=== PATIENT | male | born 1945 | race Caucasian/White ===

== ENCOUNTER 2024-03-24 11:33 | Inpatient (IN) | payer OTHER, MEDICARE ==
--- NOTE | 2024-03-24 12:00 | ED ---
Fall HPI - General Chief Complaint: Fall Stated Complaint: fall,head injury Time Seen by Provider: 03/24/24 11:44 Source: patient, EMS, RN notes reviewed Mode of arrival: EMS Limitations: no limitations - History of Present Illness Initial Comments: This is a 78-year-old male who presents to the emergency department for a fall. States that 2 to 3 days ago his left knee gave out on him and he fell, hitting the back of his head. There was no loss of consciousness and he is not on any blood thinners. He has since started to have headaches, blurry vision, nausea, and vomiting. He was not evaluated immediately after he fell. Additionally, he is also now complaining of pain in the left lower quadrant and left mid to lower back. This started after the fall and does not feel like an injury, but something else. Patient noted to be febrile here, states that he has not measured any fevers at home. He does report shortness of breath, but states th at he is always short of breath. Denies any chest pain. Also states that he feels very fatigued and is having difficulty staying awake. MD Complaint: fall - Related Data Home Medications Medication Instructions Recorded Confirmed Atorvastatin [Lipitor] 40 mg PO HS 03/24/24 03/24/24 Dulaglutide [Trulicity] 3 mg SQ TU 03/24/24 03/24/24 Ferrous Sulfate [Feosol] 325 mg PO DAILY 03/24/24 03/24/24 Fluticasone Nasal [place] [Flonase 1 spray EA NOSTRIL BID PRN 03/24/24 03/24/24 Nasal [place]] Insulin Glargine,Hum.rec.anlog 60 units SQ DAILY 03/24/24 03/24/24 [Lantus Solostar Pen] Loratadine [Claritin] 10 mg PO DAILY 03/24/24 03/24/24 Losartan Potassium [Cozaar] 100 mg PO DAILY 03/24/24 03/24/24 Mirabegron [Myrbetriq] 50 mg PO DAILY 03/24/24 03/24/24 Tamsulosin [Flomax] 0.4 mg PO DAILY 03/24/24 03/24/24 amLODIPine [Norvasc] 10 mg PO DAILY 03/24/24 03/24/24 hydrALAZINE HCL [Apresoline] 50 mg PO BID 03/24/24 03/24/24 metFORMIN HCL [Glucophage] 750 mg PO DAILY 03/24/24 03/24/24 Allergies Allergy/AdvReac Type Severity Reaction Status Date / Time Penicillins Allergy Rash/Hives Verified 03/24/24 14:52 lisinopril AdvReac Cough Verified 03/24/24 14:52 oxybutynin AdvReac Dizziness Verified 03/24/24 14:52 semaglutide [From Ozempic] AdvReac Nausea & Verified 03/24/24 14:52 Vomiting trospium AdvReac Dizziness Verified 03/24/24 14:52 Review of Systems ROS Statement: Those systems with pertinent positive or pertinent negative responses have been documented in the HPI. ROS Other: All systems not noted in ROS Statement are negative. Past Medical History Past Medical History: Diabetes Mellitus, Hypertension Smoking Status: Former smoker Past Alcohol Use History: None Reported Past Drug Use History: None Reported - Past Family History Mother History Unknown: Yes General Exam Limitations: no limitations General appearance: alert, in no apparent distress Head exam: Present: atraumatic, normocephalic, normal inspection Eye exam: Present: normal appearance, PERRL, EOMI. Absent: scleral icterus, c onjunctival injection, periorbital swelling Respiratory exam: Present: decreased breath sounds, prolonged expiratory Cardiovascular Exam: Present: normal rhythm, tachycardia GI/Abdominal exam: Present: soft, tenderness (LLQ), normal bowel sounds. Absent: distended Back exam: Present: other (Tenderness to palpation of the left mid to lower back) Neurological exam: Present: alert, oriented X3, CN II-XII intact Psychiatric exam: Present: normal affect, normal mood Skin exam: Present: warm, dry, intact Course Vital Signs 03/24/24 03/24/24 03/24/24 11:38 13:54 14:45 Temperature 102.7 F H 100 F H Pulse Rate 142 H 113 H 112 H Respiratory 26 H 24 20 Rate Blood Pressure 136/69 147/81 183/98 O2 Sat by Pulse 94 L 95 95 Oximetry Procedures - Sepsis Sepsis Focused Exam #1 Time Sepsis Criteria Met: 13:54 Additional Sepsis Comments: Patient's BMI>30, fluids will be given based on IBW of: [73kg] Patient will instead receive: [2500 mL] Medical Decision Making - Medical Decision Making This is a 78 year old male who presents to the emergency department for a head injury and fevers. Was pt. sent in by a medical professional or institution? @ -No Did you speak to anyone other than the patient for history? @ -No Did you review nursing and triage notes? @ -Yes, and I agree, it is accurate with regards to the patient's symptoms. Were old charts reviewed? @ -No Differential Diagnosis? @ -Differential Diagnosis Head Injury: Contusion, hematoma, intracranial hemorrhage, skull fracture, whiplash, concussion, this is not meant to be an all-inclusive list. EKG interpreted by me (3pts min.)? @ -EKG interpreted by me demonstrating the following: Sinus tachycardia. Ventricular rate 132 bpm, DE interval 132 ms, QRS duration 101 ms, QTc 381 ms. X-rays interpreted by me (1pt min.)? @ -Chest x-ray obtained, my interpretation identifies no localized consolidations or infiltrates. CT interpreted by me (1pt min.)? @ -Computed tomography scan of the brain and c-spine obtained. My interpretation identifies no evidence of an acute intracranial hemorrhage, skull fracture, or cervical spine fracture. CT scan of the abdomen and pelvis obtained. My interpretation identifies a left ureteral calculus. U/S interpreted by me (1pt. min.)? @ -Not obtained What testing was considered but not performed? (CT, X-rays, U/S, labs)? Why? @ -None What meds were considered but not given? Why? @ -None Did you discuss the management of the patient with other professionals? @ -Yes, Dr. Maurer, urology, who advised that the patient will need to go to the OR for a stent and advised keeping him n.p.o. Dr. Carmichael accepts the patient for admission to medicine. Did you reconcile home meds? @ -Yes Was smoking cessation discussed for >3mins.? @ -No Was critical care preformed (if so, how long)? @ -No Were there social determinants of health that impacted care today? How? (Homelessness, low income, unemployed, alcoholism, drug addiction, transportation, low edu. Level, literacy, decrease access to med. care, custodial, rehab)? @ -No Was there de-escalation of care discussed even if they declined? (Discuss DNR or withdrawal of care, Hospice)? @ -No What co-morbidities impacted this encounter? (DM, HTN, Smoking, COPD, CAD, Cancer, CVA, Hep., AIDS, mental health diagnosis, sleep apnea, morbid obesity)? @ -DM, HTN Was patient admitted / discharged? @ -Admitted. Patient was febrile on arrival with a temperature of 102.7 F. Lab work demonstrates mild hypomagnesemia with a magnesium of 1.4 and an elev ated lactic acid of 3.1. 800 mg of magnesium oxide administered. COVID, influenza, and RSV testing negative. CT scan of the brain and C-spine obtained revealing no acute process. Given his pain in the back and abdomen, we obtained a CT scan of the abdomen and pelvis which revealed a 2 mm calculus in the left mid ureter with mild left hydronephrosis. No spinal fractures were identified. Patient denies any history of kidney stones. Patient's urinalysis returned after the CT scan. Naqvi catheter was placed by nursing staff. Urinalysis consistent with infection based on many bacteria and elevated WBCs. A large amount of blood is noted as well. Patient met sepsis criteria at 1354 when his urinalysis returned confirming the source of infection. He met the SIRS criteria of the fever and tachycardia. Patient's BMI is >30, and fluids will be given based on an IBW of 73kg. He instead received 2500 mL of normal saline. Maintenance fluids initiated as well. Urine was sent for culture and blood cultures obtained as well. He was then given 2 g of ceftriaxone. Case discussed with Dr. Maurer, urology, who advised that the patient likely has a septic stone and will need to go to the OR for a stent. Patient was kept n.p.o. and admitted to medicine for further management with urology as consult. Case discussed with ED attending Dr. Liao. Of note -when reviewing documentation the following day, it appears that his weight was listed differently than when he was in the emergency department. His actual weight is 131.5 kg with a BMI of approximately 41.5. The weight of 75.5 kg is incorrect. Undiagnosed new problem with uncertain prognosis? @ -None Drug Therapy requiring intensive monitoring for toxicity (Heparin, Nitro, Insulin, Cardizem)? @ -None Were any procedures done? @ -None Diagnosis/symptom? @ -Left ureteral calculus, UTI, sepsis Acute, or Chronic, or Acute on Chronic? @ -Acute Uncomplicated (without systemic symptoms) or Complicated (systemic symptoms)? @ -Complicated Side effects of treatment? @ -None Exacerbation, Progression, or Severe Exacerbation] @ -Not applicable Poses a threat to life or bodily function? @ -Yes, can lead to septic shock and - Lab Data Result diagrams: 03/25/24 04:59 03/25/24 04:59 Lab Results 03/24/24 03/24/24 03/24/24 Range/Units 12:06 12:06 12:06 WBC 5.2 (3.8-10.6) k/uL RBC 3.83 L (4.30-5.90) m/uL Hgb 11.2 L (13.0-17.5) gm/dL Hct 33.5 L (39.0-53.0) % MCV 87.7 (80.0-100.0) fL MCH 29.4 (25.0-35.0) pg MCHC 33.5 (31.0-37.0) g/dL RDW 15.1 (11.5-15.5) % Plt Count 116 L (150-450) k/uL MPV 7.5 Neutrophils % 96 % Lymphocytes % 2 % Monocytes % 1 % Eosinophils % 1 % Basophils % 0 % Neutrophils # 5.0 (1.3-7.7) k/uL Lymphocytes # 0.1 L (1.0-4.8) k/uL Monocytes # 0.1 (0-1.0) k/uL Eosinophils # 0.0 (0-0.7) k/uL Basophils # 0.0 (0-0.2) k/uL PT 11.9 (10.0-12.5) sec INR 1.1 (<1.2) APTT 21.0 L (22.0-30.0) sec Sodium 139 (137-145) mmol/L Potassium 4.0 (3.5-5.1) mmol/L Chloride 107 (98-107) mmol/L Carbon Dioxide 16 L (22-30) mmol/L Anion Gap 16 mmol/L BUN 19 (9-20) mg/dL Creatinine 1.69 H (0.66-1.25) mg/dL Est GFR (CKD-EPI)AfAm 44 (>60 ml/min/1.73 sqM) Est GFR (CKD-EPI)NonAf 38 (>60 ml/min/1.73 sqM) Glucose 140 H (74-99) mg/dL Lactic Ac Sepsis Rflx Plasma Lactic Acid [place] (0.7-2.0) mmol/L Calcium 10.0 (8.4-10.2) mg/dL Magnesium 1.4 L (1.6-2.3) mg/dL Total Bilirubin 1.6 H (0.2-1.3) mg/dL AST 25 (17-59) U/L ALT 18 (4-49) U/L Alkaline Phosphatase 138 H (38-126) U/L NT-Pro-B Natriuret Pep 241 pg/mL Total Protein 6.8 (6.3-8.2) g/dL Albumin 4.3 (3.5-5.0) g/dL Lipase 136 (23-300) U/L Urine Color Urine Appearance (Clear) Urine pH (5.0-8.0) Ur Specific [place] (1.001-1.035) Urine Protein (Negative) Urine Glucose (UA) (Negative) Urine Ketones (Negative) Urine Blood (Negative) Urine Nitrite (Negative) Urine Bilirubin (Negative) Urine Urobilinogen (<2.0) mg/dL Ur Leukocyte Esterase (Negative) Urine RBC (0-5) /hpf Urine WBC (0-5) /hpf Ur Squamous Epith Cells (0-4) /hpf Urine Bacteria (None) /hpf Urine Mucus (None) /hpf Acetone, Qual Negative (Negative) Influenza Type A (PCR) (Not Detectd) Influenza Type B (PCR) (Not Detectd) RSV (PCR) (Not Detectd) SARS-CoV-2 (PCR) (Not Detectd) 03/24/24 03/24/24 03/24/24 Range/Units 12:06 12:06 12:40 WBC (3.8-10.6) k/uL RBC (4.30-5.90) m/uL Hgb (13.0-17.5) gm/dL Hct (39.0-53.0) % MCV (80.0-100.0) fL MCH (25.0-35.0) pg MCHC (31.0-37.0) g/dL RDW (11.5-15.5) % Plt Count (150-450) k/uL MPV Neutrophils % % Lymphocytes % % Monocytes % % Eosinophils % % Basophils % % Neutrophils # (1.3-7.7) k/uL Lymphocytes # (1.0-4.8) k/uL Monocytes # (0-1.0) k/uL Eosinophils # (0-0.7) k/uL Basophils # (0-0.2) k/uL PT (10.0-12.5) sec INR (<1.2) APTT (22.0-30.0) sec Sodium (137-145) mmol/L Potassium (3.5-5.1) mmol/L Chloride (98-107) mmol/L Carbon Dioxide (22-30) mmol/L Anion Gap mmol/L BUN (9-20) mg/dL Creatinine (0.66-1.25) mg/dL Est GFR (CKD-EPI)AfAm (>60 ml/min/1.73 sqM) Est GFR (CKD-EPI)NonAf (>60 ml/min/1.73 sqM) Glucose (74-99) mg/dL Lactic Ac Sepsis Rflx Y Plasma Lactic Acid Forrest 3.1 H* (0.7-2.0) mmol/L Calcium (8.4-10.2) mg/dL Magnesium (1.6-2.3) mg/dL Total Bilirubin (0.2-1.3) mg/dL AST (17-59) U/L ALT (4-49) U/L Alkaline Phosphatase (38-126) U/L NT-Pro-B Natriuret Pep pg/mL Total Protein (6.3-8.2) g/dL Albumin (3.5-5.0) g/dL Lipase (23-300) U/L Urine Color Urine Appearance (Clear) Urine pH (5.0-8.0) Ur Specific [place] (1.001-1.035) Urine Protein (Negative) Urine Glucose (UA) (Negative) Urine Ketones (Negative) Urine Blood (Negative) Urine Nitrite (Negative) Urine Bilirubin (Negative) Urine Urobilinogen (<2.0) mg/dL Ur Leukocyte Esterase (Negative) Urine RBC (0-5) /hpf Urine WBC (0-5) /hpf Ur Squamous Epith Cells (0-4) /hpf Urine Bacteria (None) /hpf Urine Mucus (None) /hpf Acetone, Qual (Negative) Influenza Type A (PCR) Not Detected (Not Detectd) Influenza Type B (PCR) Not Detected (Not Detectd) RSV (PCR) Not Detected (Not Detectd) SARS-CoV-2 (PCR) Not Detected (Not Detectd) 03/24/24 03/24/24 Range/Units 13:54 14:59 WBC (3.8-10.6) k/uL RBC (4.30-5.90) m/uL Hgb (13.0-17.5) gm/dL Hct (39.0-53.0) % MCV (80.0-100.0) fL MCH (25.0-35.0) pg MCHC (31.0-37.0) g/dL RDW (11.5-15.5) % Plt Count (150-450) k/uL MPV Neutrophils % % Lymphocytes % % Monocytes % % Eosinophils % % Basophils % % Neutrophils # (1.3-7.7) k/uL Lymphocytes # (1.0-4.8) k/uL Monocytes # (0-1.0) k/uL Eosinophils # (0-0.7) k/uL Basophils # (0-0.2) k/uL PT (10.0-12.5) sec INR (<1.2) APTT (22.0-30.0) sec Sodium (137-145) mmol/L Potassium (3.5-5.1) mmol/L Chloride (98-107) mmol/L Carbon Dioxide (22-30) mmol/L Anion Gap mmol/L BUN (9-20) mg/dL Creatinine (0.66-1.25) mg/dL Est GFR (CKD-EPI)AfAm (>60 ml/min/1.73 sqM) Est GFR (CKD-EPI)NonAf (>60 ml/min/1.73 sqM) Glucose (74-99) mg/dL Lactic Ac Sepsis Rflx Plasma Lactic Acid [place] 1.9 (0.7-2.0) mmol/L Calcium (8.4-10.2) mg/dL Magnesium (1.6-2.3) mg/dL Total Bilirubin (0.2-1.3) mg/dL AST (17-59) U/L ALT (4-49) U/L Alkaline Phosphatase (38-126) U/L NT-Pro-B Natriuret Pep pg/mL Total Protein (6.3-8.2) g/dL Albumin (3.5-5.0) g/dL Lipase (23-300) U/L Urine Color Colorless Urine Appearance Clear (Clear) Urine pH 5.0 (5.0-8.0) Ur Specific [place] 1.010 (1.001-1.035) Urine Protein Trace H (Negative) Urine Glucose (UA) Negative (Negative) Urine Ketones Negative (Negative) Urine Blood Large H (Negative) Urine Nitrite Negative (Negative) Urine Bilirubin Negative (Negative) Urine Urobilinogen <2.0 (<2.0) mg/dL Ur Leukocyte Esterase Moderate H (Negative) Urine RBC 8 H (0-5) /hpf Urine WBC 10 H (0-5) /hpf Ur Squamous Epith Cells <1 (0-4) /hpf Urine Bacteria Many H (None) /hpf Urine Mucus Rare H (None) /hpf Acetone, Qual (Negative) Influenza Type A (PCR) (Not Detectd) Influenza Type B (PCR) (Not Detectd) RSV (PCR) (Not Detectd) SARS-CoV-2 (PCR) (Not Detectd) - Radiology Data Radiology results: report reviewed, image reviewed Disposition Clinical Impression: UTI (urinary tract infection), Ureteral calculus, left, Sepsis Disposition: ADMITTED IP TO THIS HOSP
[2024-03-24] MEDS: SODIUM CHLORIDE 0.9% 500 ML 500 ML IV STA (12:10)
[2024-03-24] MEDS: ACETAMINOPHEN TAB 500 MG TAB PO STA (12:10)
[2024-03-24] MEDS: SODIUM CHLORIDE 0.9% 2,000 ML IV STA (12:10)
[2024-03-24 12:20] LABS: Basophils % (A) 0 %; Eosinophils % (A) 1 %; HCT 33.5 % (39.0-53.0); HGB 11.2 gm/dL (13.0-17.5); Lymphocytes # (A) 0.1 k/uL (1.0-4.8); Lymphocytes % (A) 2 %; MCH 29.4 pg (25.0-35.0); MCHC 33.5 g/dL (31.0-37.0); MCV 87.7 fL (80.0-100.0); Mean Platelet Volume 7.5; Monocytes # (A) 0.1 k/uL (0-1.0); Monocytes % (A) 1 %; Neutrophils % (A) 96 %; Platelet Count 116 k/uL (150-450); RBC 3.83 m/uL (4.30-5.90); RDW 15.1 % (11.5-15.5); WBC 5.2 k/uL (3.8-10.6)
[2024-03-24 12:33] LABS: ALT 18 U/L (4-49); AST 25 U/L (17-59); African American GFR (CKD) 44 (>60 ml/min/1.73 sqM); Albumin 4.3 g/dL (3.5-5.0); Alkaline Phosphatase 138 U/L (38-126); Anion Gap 16 mmol/L; Blood Urea Nitrogen 19 mg/dL (9-20); Carbon Dioxide 16 mmol/L (22-30); Chloride 107 mmol/L (98-107); Glucose 140 mg/dL (74-99); Lipase 136 U/L (23-300); Magnesium 1.4 mg/dL (1.6-2.3); Non-African American GFR(CKD) 38 (>60 ml/min/1.73 sqM); Sodium 139 mmol/L (137-145); Total Bilirubin 1.6 mg/dL (0.2-1.3); Total Protein 6.8 g/dL (6.3-8.2)
[2024-03-24 12:41] LABS: NT-Pro-B-Type Natriuretic Pept 241 pg/mL
[2024-03-24 12:46] LABS: INR 1.1 (<1.2); Prothrombin Time 11.9 sec (10.0-12.5)
--- NOTE | 2024-03-24 12:54 | CT ---
EXAMINATION TYPE: CT brain cspine wo con DATE OF EXAM: 03/24/2024 12:42 PM COMPARISON: None. CLINICAL INDICATION: Male, 78 years old with history of Fall; PAIN AFTER FALL, pain TECHNIQUE: Brain: Multiple axial CT images of the brain were obtained without IV contrast. Cspine: Axial CT images from the skull base to the inferior aspect of T2 we obtained without intraven ous contrast. Coronal and sagittal reformatted images were also reviewed. . CT DLP: 1658 mGycm, Automated exposure control for dose reduction was used. FINDINGS: Brain: Extra-axial spaces: No abnormal extra-axial fluid collections. Ventricular system: Dilatation in proportion to cerebral atrophy. Cerebral parenchyma: Cerebral atrophy. No acute intraparenchymal hemorrhage or mass effect. The sam -white junction is well differentiated. Scattered hypoattenuating areas are seen within the white mat ter. Cerebellum: Unremarkable. Mass effect: No evidence of midline shift. Intracranial vasculature: Atherosclerotic calcifications of the intracranial vessels. Soft tissues: Normal. Calvarium/osseous structures: No depressed skull fracture. Paranasal sinuses and mastoid air cells: Clear. Visualized orbits: Right aphakia Cervical spine: Fracture: None. Osseous structures: Multilevel degenerative disc disease changes with endplate spurring and disc oste ophyte complex's. calcification along the posterior longitudinal ligament with at least mild spinal c anal stenosis. Vertebral alignment: Within normal limits. Spinal canal/Neural Foramina: No evidence of significant spinal canal narrowing. No evidence for sign ificant neural foraminal stenosis. Neck soft tissues: Prevertebral soft tissues are within normal limits. Other: The airway is patent. The lung apices are clear. IMPRESSION: 1. No acute intracranial process. 2. Nonspecific white matter changes, likely secondary to chronic small vessel ischemic disease. 3. No evidence of cervical spine fracture. 4. Moderate multilevel degenerative disc disease. [facility], , 03/24/2024 12:52 PM
[2024-03-24 12:55] LABS: Influenza A Not Detected (Not Detectd); Influenza B Not Detected (Not Detectd); RSV Not Detected (Not Detectd)
--- NOTE | 2024-03-24 12:57 | CT ---
EXAMINATION TYPE: CT abdomen pelvis wo con DATE OF EXAM: 03/24/2024 12:42 PM COMPARISON: None CLINICAL INDICATION: Male, 78 years old with history of LLQ and left lower back pain; LLQ and left lo wer back pain TECHNIQUE: Axial CT abdomen pelvis wo con;Sagittal and coronal reformats were created on a separate workstation. Contrast used: mL of , (none if empty) Oral contrast used: without Oral Contrast (none if empty) CT DLP: 2063.4 mGycm, Automated exposure control for dose reduction was used. FINDINGS: LOWER CHEST: Unremarkable ABDOMEN LIVER: Diffusely hypoattenuating parenchyma. GALLBLADDER AND BILE DUCTS: Unremarkable. PANCREAS: Unremarkable. SPLEEN: Unremarkable. ADRENAL GLANDS: Unremarkable. KIDNEYS AND URETERS: Mild left hydronephrosis with 3 mm calculus in the mid ureter perinephric fashio fadumo on the left kidney. PELVIS BLADDER: No evidence for wall thickening or mass given limitations of exam. REPRODUCTIVE: Unremarkable. ABDOMEN & PELVIS STOMACH AND BOWEL: No evidence of bowel obstruction. Scattered colonic diverticula. PERITONEUM/RETROPERITONEUM: No evidence of pneumoperitoneum or free fluid. VASCULATURE: No evidence of aortic aneurysm. MUSCULOSKELETAL: No acute osseous abnormalities. Severe disc degeneration changes are present through out the thoracolumbar spine. Osteoarthrosis of the spinous processes. LYMPH NODES: No gross evidence for lymphadenopathy. SOFT TISSUE/ABDOMINAL WALL: Unremarkable IMPRESSION: 1. Mild left hydronephrosis secondary obstructing 2 mm calculus in the left mid ureter. 2. Severe degeneration changes of the spine with severe atherosclerosis of the spinous processes whi ch can be seen in setting of Ba[place]rup's disease. No evidence for spinal fracture. If there remains co ncern consider MRI. Hepatic steatosis. [facility], , 03/24/2024 12:55 PM
--- NOTE | 2024-03-24 13:02 | XR ---
EXAMINATION TYPE: XR chest 2V DATE OF EXAM: 03/24/2024 12:54 PM COMPARISON: None CLINICAL INDICATION: Male, 78 years old with history of IVANNA; [facility] TECHNIQUE: XR chest 2V Frontal and lateral views of the chest. FINDINGS: Lungs/Pleura: There is no evidence of pleural effusion, focal consolidation, or pneumothorax. Pulmonary vascularity: Unremarkable. Heart/mediastinum: Cardiomediastinal silhouette is unremarkable. Musculoskeletal: No acute osseous pathology. IMPRESSION: No acute cardiopulmonary disease/process. [facility], , 03/24/2024 1:00 PM
[2024-03-24] MEDS: MAGNESIUM OXIDE 400 MG TAB PO STA ×2 (13:04)
[2024-03-24] MEDS: MORPHINE SULFATE 4 MG/ML SYRINGE IVP STA (13:52)
[2024-03-24 14:14] LABS: Appearance,Urine Clear (Clear); Bacteria,Urine Many /hpf; Bilirubin,Urine Negative (Negative); Blood,Urine Large (Negative); Color,Urine Colorless; Glucose,Urine (UA) Negative (Negative); Ketones,Urine Negative (Negative); Leukocyte Esterase,Urine Moderate (Negative); Mucus,Urine Rare /hpf; Nitrite,Urine Negative (Negative); Protein,Urine Trace (Negative); RBC,Urine 8 /hpf (0-5); Squamous Epithelial Cell,Urine <1 /hpf (0-4); Urobilinogen,Urine <2.0 mg/dL (<2.0); WBC,Urine 10 /hpf (0-5)
[2024-03-24] MEDS ORDERED: HYDROcodone/APAP 5-325MG 1 EACH TAB PO PRN (14:32)
[2024-03-24] MEDS ORDERED: MORPHINE SULFATE 4 MG/ML SYRINGE IV PRN (14:32)
[2024-03-24] MEDS ORDERED: NALOXONE 0.4 MG/ML 1 ML VIAL IV PRN (14:32)
[2024-03-24] MEDS: SODIUM CHLORIDE 0.9% 1,000 ML IV STA (14:45)
[2024-03-24] MEDS ORDERED: FLUTICASONE NASAL 50MCG/SPRAY 16GM BTL EA NOSTRIL PRN (15:22)
--- NOTE | 2024-03-24 15:46 | P.GSCN ---
History of Present Illness Consult date: 03/24/24 History of present illness: 78 yo male who came to the er because of a fall. Was found to have back pain and a fever. A ct scan showed a 3mm obstructing left ureteral stone. His urine looks infected. He will be admitted for ab but will require a stent to relieve the obstruction and drain the pyonephrosis. Past Medical History Past Medical History: Diabetes Mellitus, Hypertension Smoking Status: Former smoker Past Alcohol Use History: None Reported Past Drug Use History: None Reported Medications and Allergies Home Medications Medication Instructions Recorded Confirmed Type Atorvastatin [Lipitor] 40 mg PO HS 03/24/24 03/24/24 History Dulaglutide [Trulicity] 3 mg SQ TU 03/24/24 03/24/24 History Ferrous Sulfate [Feosol] 325 mg PO DAILY 03/24/24 03/24/24 History Fluticasone Nasal [place] [Flonase 1 spray EA NOSTRIL BID PRN 03/24/24 03/24/24 History Nasal [place]] Insulin Glargine,Hum.rec.anlog 60 units SQ DAILY 03/24/24 03/24/24 History [Lantus Solostar Pen] Loratadine [Claritin] 10 mg PO DAILY 03/24/24 03/24/24 History Losartan Potassium [Cozaar] 100 mg PO DAILY 03/24/24 03/24/24 History Mirabegron [Myrbetriq] 50 mg PO DAILY 03/24/24 03/24/24 History Tamsulosin [Flomax] 0.4 mg PO DAILY 03/24/24 03/24/24 History amLODIPine [Norvasc] 10 mg PO DAILY 03/24/24 03/24/24 History hydrALAZINE HCL [Apresoline] 50 mg PO BID 03/24/24 03/24/24 History metFORMIN HCL [Glucophage] 750 mg PO DAILY 03/24/24 03/24/24 History Allergies Allergy/AdvReac Type Severity Reaction Status Date / Time Penicillins Allergy Rash/Hives Verified 03/24/24 14:52 lisinopril AdvReac Cough Verified 03/24/24 14:52 oxybutynin AdvReac Dizziness Verified 03/24/24 14:52 semaglutide [From Ozempic] AdvReac Nausea & Verified 03/24/24 14:52 Vomiting trospium AdvReac Dizziness Verified 03/24/24 14:52 Surgical - Exam Vital Signs Temp Pulse Resp BP Pulse Ox 102.7 F H 142 H 26 H 136/69 94 L 03/24/24 11:38 03/24/24 11:38 03/24/24 11:38 03/24/24 11:38 03/24/24 11:38 - General well developed, well nourished, no distress, obese - Eyes normal ocular movement, no icteric - ENT no hearing loss, no congestion - Neck no masses, trachea midline - Respiratory normal respiratory effort, clear to auscultation - Abdomen Abdomen: soft, non tender, no guarding, no rigid, no rebound - Genitourinary Chronic indwelling catheter - Integumentary no rash, no abnormal pigmentation - Neurologic no disoriented, no combative - Psychiatric oriented to time, oriented to person, oriented to place, speech is normal, phyllis ry intact Results - Labs 03/24/24 12:06 03/24/24 12:06 Abnormal Lab Results - Last 24 Hours (Table) 03/24/24 03/24/24 03/24/24 Range/Units 12:06 12:06 12:06 RBC 3.83 L (4.30-5.90) m/uL Hgb 11.2 L (13.0-17.5) gm/dL Hct 33.5 L (39.0-53.0) % Plt Count 116 L (150-450) k/uL Lymphocytes # 0.1 L (1.0-4.8) k/uL APTT 21.0 L (22.0-30.0) sec Carbon Dioxide 16 L (22-30) mmol/L Creatinine 1.69 H (0.66-1.25) mg/dL Glucose 140 H (74-99) mg/dL Plasma Lactic Acid Forrest (0.7-2.0) mmol/L Magnesium 1.4 L (1.6-2.3) mg/dL Total Bilirubin 1.6 H (0.2-1.3) mg/dL Alkaline Phosphatase 138 H (38-126) U/L Urine Protein (Negative) Urine Blood (Negative) Ur Leukocyte Esterase (Negative) Urine RBC (0-5) /hpf Urine WBC (0-5) /hpf Urine Bacteria (None) /hpf Urine Mucus (None) /hpf 03/24/24 03/24/24 Range/Units 12:06 13:54 RBC (4.30-5.90) m/uL Hgb (13.0-17.5) gm/dL Hct (39.0-53.0) % Plt Count (150-450) k/uL Lymphocytes # (1.0-4.8) k/uL APTT (22.0-30.0) sec Carbon Dioxide (22-30) mmol/L Creatinine (0.66-1.25) mg/dL Glucose (74-99) mg/dL Plasma Lactic Acid Forrest 3.1 H* (0.7-2.0) mmol/L Magnesium (1.6-2.3) mg/dL Total Bilirubin (0.2-1.3) mg/dL Alkaline Phosphatase (38-126) U/L Urine Protein Trace H (Negative) Urine Blood Large H (Negative) Ur Leukocyte Esterase Moderate H (Negative) Urine RBC 8 H (0-5) /hpf Urine WBC 10 H (0-5) /hpf Urine Bacteria Many H (None) /hpf Urine Mucus Rare H (None) /hpf Diabetes panel 03/24/24 Range/Units 12:06 Sodium 139 (137-145) mmol/L Potassium 4.0 (3.5-5.1) mmol/L Chloride 107 (98-107) mmol/L Carbon Dioxide 16 L (22-30) mmol/L BUN 19 (9-20) mg/dL Creatinine 1.69 H (0.66-1.25) mg/dL Glucose 140 H (74-99) mg/dL Calcium 10.0 (8.4-10.2) mg/dL AST 25 (17-59) U/L ALT 18 (4-49) U/L Alkaline Phosphatase 138 H (38-126) U/L Total Protein 6.8 (6.3-8.2) g/dL Albumin 4.3 (3.5-5.0) g/dL Calcium panel 03/24/24 Range/Units 12:06 Calcium 10.0 (8.4-10.2) mg/dL Albumin 4.3 (3.5-5.0) g/dL Pituitary panel 03/24/24 Range/Units 12:06 Sodium 139 (137-145) mmol/L Potassium 4.0 (3.5-5.1) mmol/L Chloride 107 (98-107) mmol/L Carbon Dioxide 16 L (22-30) mmol/L BUN 19 (9-20) mg/dL Creatinine 1.69 H (0.66-1.25) mg/dL Glucose 140 H (74-99) mg/dL Calcium 10.0 (8.4-10.2) mg/dL Adrenal panel 03/24/24 Range/Units 12:06 Sodium 139 (137-145) mmol/L Potassium 4.0 (3.5-5.1) mmol/L Chloride 107 (98-107) mmol/L Carbon Dioxide 16 L (22-30) mmol/L BUN 19 (9-20) mg/dL Creatinine 1.69 H (0.66-1.25) mg/dL Glucose 140 H (74-99) mg/dL Calcium 10.0 (8.4-10.2) mg/dL Total Bilirubin 1.6 H (0.2-1.3) mg/dL AST 25 (17-59) U/L ALT 18 (4-49) U/L Alkaline Phosphatase 138 H (38-126) U/L Total Protein 6.8 (6.3-8.2) g/dL Albumin 4.3 (3.5-5.0) g/dL - Imaging CT scan - abdomen: report reviewed, image reviewed CT scan - pelvis: report reviewed, image reviewed Assessment and Plan Assessment: Impression: Urinary tract infection. Left ureteral stone with obstruction and probable pyelonephrosis chronic indwelling catheter Recommendations: The patient needs cystoscopy with left stent placement to relieve the obstruction and better treat the pyelonephrosis. The stone will be dealt with at a later date.
[2024-03-24] MEDS: IV FLUID CONTINUATION 1,000 ML IV ONE (15:53)
[2024-03-24 16:08] LABS: Glucose,Whole Blood 111 mg/dL (70-110)
[2024-03-24] MEDS: ONDANSETRON 4 MG/2 ML VIAL IVP PRN (16:17)
[2024-03-24] MEDS ORDERED: MIDAZOLAM 2 MG/2 ML VIAL ONE (16:42)
[2024-03-24] MEDS ORDERED: PROPOFOL 10 MG/ML 20 ML VIAL IV ONE (16:42)
[2024-03-24] MEDS ORDERED: fentaNYL (PF) 50 MCG/ML 2 ML AMP ONE (16:42)
--- NOTE | 2024-03-24 17:11 | P.OP ---
Date of Procedure: 03/24/24 Preoperative Diagnosis: Urinary tract infection with sepsis, left ureteral stone with obstruction and pyelonephrosis Postoperative Diagnosis: Same Procedure(s) Performed: Cystoscopy with placement of left double-J catheter 6 x 26, replacement of indwelling catheter Anesthesia: MAC Surgeon: Kenji Maurer Estimated Blood Loss (ml): 0 Pathology: none sent Condition: stable Disposition: PACU Indications for Procedure: The patient is 78. He came after a fall. He was found to have a urinary tract infection with sepsis and elevated temperature of 102.7 infected looking urine, and an obstructing left ureteral stone. Because of the infection, sepsis and elevated temperature he comes for stent placement to relieve the obstruction and pyelonephrosis Description of Procedure: Patient brought to the operating suite. He is placed on the operating table in supine position. He was given IV sedation. The Naqvi catheter was removed. A sterile prep and drape was administered. I introduced the cystoscope into the bladder the anterior urethra is normal the prostate shows moderate obstruction the bladder wall shows chronic trabeculation, chronic inflammation due to the indwelling catheter. The left ureteral orifice is identified an 035 wire was passed up into the kidney. Over the wire is passed a 6 x 26 double-J catheter close in the renal pelvis and in the bladder. The rope was removed from the bladder. I replaced the 16 [place] indwelling catheter Impression successful stent placement to relieve the obstruction and pyelonephrosis of the left ureter due to an obstructing mid ureteral stone Recommendations: The patient will need stent and stone removal in approximately 10 days to 2 weeks
--- NOTE | 2024-03-24 17:31 | FL ---
Intraoperative/procedural fluoroscopic services were provided for a left ureteral stent placement. To laverne fluoroscopy time is 3.5 seconds with a total of 1 submitted image to PACS. Total DAP [id number] mGym 2. Please see the operative note for further details. [facility], , 03/24/2024 5:29 PM
[2024-03-24] MEDS ORDERED: DEXTROSE 50% SYRINGE 50 ML IVP PRN ×2 (18:45)
--- NOTE | 2024-03-24 19:05 | P.HPIM ---
History of Present Illness H&P Date: 03/24/24 78 year old M with PMH of HTN, DM, BPH presents to the ED after a mechanical fall 2-3 days ago. Denies syncope but hit the back of his head. He did not seek medical attention. He reports left flank pain radiating to the LLQ over the past day. He also reports fatigue and difficulty staying awake. In the ED he underwent extensive evaluation. BP 136/69, HR 142, T 102.7F, RR 26, 94% on RA. CBC, Coag panel, CMP significant for RBC 3.82, Hg 11.2, Hct 33.5, Plt 116, APTT 21, bicarb 16, Cr 1.69, glu 140, T. Bili 1.6, alk phos 138. Lactic acid 3.1. UA large blood and mod LE. Acetone neg. COVID, RSV, Flu neg. 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 CT head and C-spine showed no acute findings. CXR neg. EKG sinus tachycardia with nonspecific ST T wave changes. Patient was started on Rocephin and Urology was consulted. He underwent cystoscopy with placement of left double-J catheter 6 x 26, replacement of indwelling catheter with Dr. Maurer on 03/24. General: non toxic, no distress, appears at stated age Derm: warm, dry Head: atraumatic, normocephalic, symmetric Eyes: EOMI, no lid lag, anicteric sclera Mouth: no lip lesion, mucus membranes moist Cardiovascular: S1S2 tachy, no murmur Lungs: Clear to auscultation bilateral, no rhonchi, no rales , no accessory muscle use Ext: no gross muscle atrophy, no edema, no contractures Neuro: no focal neuro deficits Psych: Alert, oriented, appropriate affect Based on my assessment of this patient, this patient meets a high complexity level of care. Sepsis due to complicated UTI with Lactic acidosis: Start Rocephin 2g IV QD. Obtain UCx + BCx. Continue NS at 130 cc/hr. Telemetry monitoring. ALDAIR versus CKD with metabolic acidosis: IV hydration as above. Hopeful improvement after cystoscopy with stent placement. Hold Losartan. Repeat BMP in the AM. HypoMag: Mag-ox 400 mg PO x 1. Repeat in the AM. Elevated total bilirubin: Unknown significance. Repeat in the AM. Left ureteral stone with hydronephrosis status post cystoscopy with stent Diabetes mellitus: ISS with Accuchecks ACHS + Hypoglycemic precautions. Hypertension: Amlodipine 10 mg PO QD. Hydralazine 50 mg PO BID. BPH: Flomax 0.4 mg PO QD. CODE STATUS: FULL CODE DVT Prophylaxis: Heparin SQ GI Prophylaxis: Designated medical POA if patient is not able to make medical decisions for themselves: I have reviewed the following [facility] consultant notes: ED, Urology note. I have reviewed the results of the following tests: As above. I have ordered the following tests: CBC and CMP in the AM. I have discussed the care of this patient with the following independent historian: GUANAKITO. I have independently interpreted the following test below: CXR. I have discussed the management of this patient with the following physician: Past Medical History Past Medical History: Diabetes Mellitus, Hypertension Smoking Status: Former smoker Past Alcohol Use History: None Reported Past Drug Use History: None Reported Medications and Allergies Home Medications Medication Instructions Recorded Confirmed Type Atorvastatin [Lipitor] 40 mg PO HS 03/24/24 03/24/24 History Dulaglutide [Trulicity] 3 mg SQ TU 03/24/24 03/24/24 History Ferrous Sulfate [Feosol] 325 mg PO DAILY 03/24/24 03/24/24 History Fluticasone Nasal [place] [Flonase 1 spray EA NOSTRIL BID PRN 03/24/24 03/24/24 History Nasal [place]] Insulin Glargine,Hum.rec.anlog 60 units SQ DAILY 03/24/24 03/24/24 History [Lantus Solostar Pen] Loratadine [Claritin] 10 mg PO DAILY 03/24/24 03/24/24 History Losartan Potassium [Cozaar] 100 mg PO DAILY 03/24/24 03/24/24 History Mirabegron [Myrbetriq] 50 mg PO DAILY 03/24/24 03/24/24 History Tamsulosin [Flomax] 0.4 mg PO DAILY 03/24/24 03/24/24 History amLODIPine [Norvasc] 10 mg PO DAILY 03/24/24 03/24/24 History hydrALAZINE HCL [Apresoline] 50 mg PO BID 03/24/24 03/24/24 History metFORMIN HCL [Glucophage] 750 mg PO DAILY 03/24/24 03/24/24 History Allergies Allergy/AdvReac Type Severity Reaction Status Date / Time Penicillins Allergy Rash/Hives Verified 03/24/24 14:52 lisinopril AdvReac Cough Verified 03/24/24 14:52 oxybutynin AdvReac Dizziness Verified 03/24/24 14:52 semaglutide [From Ozempic] AdvReac Nausea & Verified 03/24/24 14:52 Vomiting trospium AdvReac Dizziness Verified 03/24/24 14:52 Physical Exam Vitals: Vital Signs Temp Pulse Pulse Pulse Resp BP BP 03/24/24 17:59 91 18 03/24/24 17:44 102 H 19 03/24/24 17:30 107 H 18 03/24/24 17:14 98.5 F 100 16 03/24/24 15:50 99.3 F 116 H 18 144/62 03/24/24 14:45 112 H 20 183/98 03/24/24 13:54 100 F H 113 H 24 147/81 03/24/24 11:38 102.7 F H 142 H 26 H 136/69 BP Pulse Ox 03/24/24 17:59 138/65 100 03/24/24 17:44 130/62 100 03/24/24 17:30 123/57 100 03/24/24 17:14 125/57 96 03/24/24 15:50 98 03/24/24 14:45 95 03/24/24 13:54 95 03/24/24 11:38 94 L Intake and Output 03/24/24 03/24/24 03/24/24 06:59 14:59 22:59 Intake Total 400 Output Total 350 0 Balance -350 400 Intake: IV 400 Output: Urine 350 Uretheral (Naqvi) 350 Estimated Blood Loss 0 Other: Weight 131.542 kg Results CBC & Chem 7: 03/24/24 12:06 03/24/24 12:06 Labs: Abnormal Lab Results - Last 24 Hours (Table) 03/24/24 03/24/24 03/24/24 Range/Units 12:06 12:06 12:06 RBC 3.83 L (4.30-5.90) m/uL Hgb 11.2 L (13.0-17.5) gm/dL Hct 33.5 L (39.0-53.0) % Plt Count 116 L (150-450) k/uL Lymphocytes # 0.1 L (1.0-4.8) k/uL APTT 21.0 L (22.0-30.0) sec Carbon Dioxide 16 L (22-30) mmol/L Creatinine 1.69 H (0.66-1.25) mg/dL Glucose 140 H (74-99) mg/dL POC Glucose (mg/dL) (70-110) mg/dL Plasma Lactic Acid Forrest (0.7-2.0) mmol/L Magnesium 1.4 L (1.6-2.3) mg/dL Total Bilirubin 1.6 H (0.2-1.3) mg/dL Alkaline Phosphatase 138 H (38-126) U/L Urine Protein (Negative) Urine Blood (Negative) Ur Leukocyte Esterase (Negative) Urine RBC (0-5) /hpf Urine WBC (0-5) /hpf Urine Bacteria (None) /hpf Urine Mucus (None) /hpf 03/24/24 03/24/24 03/24/24 Range/Units 12:06 13:54 16:06 RBC (4.30-5.90) m/uL Hgb (13.0-17.5) gm/dL Hct (39.0-53.0) % Plt Count (150-450) k/uL Lymphocytes # (1.0-4.8) k/uL APTT (22.0-30.0) sec Carbon Dioxide (22-30) mmol/L Creatinine (0.66-1.25) mg/dL Glucose (74-99) mg/dL POC Glucose (mg/dL) 111 H (70-110) mg/dL Plasma Lactic Acid Forrest 3.1 H* (0.7-2.0) mmol/L Magnesium (1.6-2.3) mg/dL Total Bilirubin (0.2-1.3) mg/dL Alkaline Phosphatase (38-126) U/L Urine Protein Trace H (Negative) Urine Blood Large H (Negative) Ur Leukocyte Esterase Moderate H (Negative) Urine RBC 8 H (0-5) /hpf Urine WBC 10 H (0-5) /hpf Urine Bacteria Many H (None) /hpf Urine Mucus Rare H (None) /hpf Thrombosis Risk Factor Assmnt - Choose All That Apply Each Risk Factor Represents 2 Points: Age 61-74 years Thrombosis Risk Factor Assessment Total Risk Factor Score: 2 Thrombosis Risk Factor Assessment Level: Low Risk
[2024-03-24 21:27] LABS: Glucose,Whole Blood 129 mg/dL (70-110)
[2024-03-24] MEDS: INSULIN ASPART (NovoLOG) 100 UNIT/ML VIAL SQ SCH (21:27)
[2024-03-24] MEDS: ATORVASTATIN 40 MG TAB PO SCH (21:33)
[2024-03-24] MEDS: ACETAMINOPHEN TAB 325 MG TAB PO PRN (21:33)
[2024-03-24] MEDS: hydrALAZINE HCL 50 MG TAB PO SCH (21:33)
[2024-03-24] MEDS: HEPARIN SODIUM,PORCINE 5,000 UNIT/ML 1 ML VIAL SQ SCH (23:33)
[2024-03-25 05:54] LABS: ALT 16 U/L (4-49); AST 26 U/L (17-59); African American GFR (CKD) 44 (>60 ml/min/1.73 sqM); Albumin 3.3 g/dL (3.5-5.0); Albumin/Globulin Ratio 1.4; Alkaline Phosphatase 87 U/L (38-126); Anion Gap 13 mmol/L; Blood Urea Nitrogen 21 mg/dL (9-20); Calcium 8.9 mg/dL (8.4-10.2); Carbon Dioxide 16 mmol/L (22-30); Chloride 108 mmol/L (98-107); Globulin 2.4 g/dL; Glucose 116 mg/dL (74-99); Magnesium 1.6 mg/dL (1.6-2.3); Non-African American GFR(CKD) 38 (>60 ml/min/1.73 sqM); Potassium 4.4 mmol/L (3.5-5.1); Sodium 137 mmol/L (137-145); Total Bilirubin 1.7 mg/dL (0.2-1.3); Total Protein 5.7 g/dL (6.3-8.2)
[2024-03-25 05:57] LABS: HCT 30.7 % (39.0-53.0); HGB 10.3 gm/dL (13.0-17.5); MCH 30.1 pg (25.0-35.0); MCHC 33.5 g/dL (31.0-37.0); MCV 89.9 fL (80.0-100.0); Mean Platelet Volume 8.2; Platelet Count 100 k/uL (150-450); Poikilocytosis Slight; RBC 3.41 m/uL (4.30-5.90); RDW 15.8 % (11.5-15.5); WBC 13.4 k/uL (3.8-10.6)
[2024-03-25 06:18] LABS: Glucose,Whole Blood 121 mg/dL (70-110)
[2024-03-25] MEDS ORDERED: INSULIN DETEMIR (LEVEMIR) 100 UNIT/ML SYR SQ SCH (07:00)
[2024-03-25] MEDS ORDERED: LOSARTAN 50 MG TAB PO SCH (09:00)
[2024-03-25] MEDS ORDERED: metFORMIN 500 MG TAB PO SCH (09:00)
[2024-03-25] MEDS: PANTOPRAZOLE 40 MG/10 ML VIAL IV SCH (09:24)
[2024-03-25] MEDS: TAMSULOSIN 0.4 MG CAP.ER.24H PO SCH (09:24)
[2024-03-25] MEDS: FERROUS SULFATE 325 MG TAB PO SCH (09:24)
[2024-03-25] MEDS: amLODIPine 10 MG TAB PO SCH (09:24)
[2024-03-25] MEDS: Mirabegron [Myrbetriq] 50 MG Tab.Er.24h PO SCH (09:25)
[2024-03-25] MEDS: LORATADINE 10 MG TAB PO SCH (09:26)
[2024-03-25 11:26] LABS: Glucose,Whole Blood 138 mg/dL (70-110)
--- NOTE | 2024-03-25 12:37 | P.PN ---
Subjective Progress Note Date: 03/25/24 The patient is in the hospital with an obstructing left ureteral calculus, pyelonephrosis, urinary tract infection with sepsis. Yesterday placed a double- J catheter up the left kidney. Objective - Vital Signs Vital signs: Vital Signs Temp 99 F 03/25/24 06:48 Pulse 81 03/25/24 06:48 Resp 17 03/25/24 06:48 BP 136/65 03/25/24 06:48 Pulse Ox 98 03/25/24 06:48 FiO2 Intake & Output 03/24/24 03/25/24 03/25/24 18:59 06:59 18:59 Intake Total 400 Output Total 350 850 Balance 50 -850 Weight 131.542 kg 75.5 kg Intake: IV 400 Output: Urine 350 850 Uretheral (Naqvi) 350 Estimated Blood Loss 0 Other: Voiding Method Indwelling Catheter Indwelling Catheter - Labs CBC & Chem 7: 03/25/24 04:59 03/25/24 04:59 Labs: Abnormal Lab Results - Last 24 Hours (Table) 03/24/24 03/24/24 03/24/24 Range/Units 12:06 12:06 13:54 WBC (3.8-10.6) k/uL RBC (4.30-5.90) m/uL Hgb (13.0-17.5) gm/dL Hct (39.0-53.0) % RDW (11.5-15.5) % Plt Count (150-450) k/uL APTT 21.0 L (22.0-30.0) sec Chloride (98-107) mmol/L Carbon Dioxide (22-30) mmol/L BUN (9-20) mg/dL Creatinine (0.66-1.25) mg/dL Glucose (74-99) mg/dL POC Glucose (mg/dL) (70-110) mg/dL Plasma Lactic Acid Forrest 3.1 H* (0.7-2.0) mmol/L Total Bilirubin (0.2-1.3) mg/dL Total Protein (6.3-8.2) g/dL Albumin (3.5-5.0) g/dL Urine Protein Trace H (Negative) Urine Blood Large H (Negative) Ur Leukocyte Esterase Moderate H (Negative) Urine RBC 8 H (0-5) /hpf Urine WBC 10 H (0-5) /hpf Urine Bacteria Many H (None) /hpf Urine Mucus Rare H (None) /hpf 03/24/24 03/24/24 03/25/24 Range/Units 16:06 21:25 04:59 WBC 13.4 H (3.8-10.6) k/uL RBC 3.41 L (4.30-5.90) m/uL Hgb 10.3 L (13.0-17.5) gm/dL Hct 30.7 L (39.0-53.0) % RDW 15.8 H (11.5-15.5) % Plt Count 100 L (150-450) k/uL APTT (22.0-30.0) sec Chloride (98-107) mmol/L Carbon Dioxide (22-30) mmol/L BUN (9-20) mg/dL Creatinine (0.66-1.25) mg/dL Glucose (74-99) mg/dL POC Glucose (mg/dL) 111 H 129 H (70-110) mg/dL Plasma Lactic Acid Forrest (0.7-2.0) mmol/L Total Bilirubin (0.2-1.3) mg/dL Total Protein (6.3-8.2) g/dL Albumin (3.5-5.0) g/dL Urine Protein (Negative) Urine Blood (Negative) Ur Leukocyte Esterase (Negative) Urine RBC (0-5) /hpf Urine WBC (0-5) /hpf Urine Bacteria (None) /hpf Urine Mucus (None) /hpf 03/25/24 03/25/24 03/25/24 Range/Units 04:59 06:16 11:22 WBC (3.8-10.6) k/uL RBC (4.30-5.90) m/uL Hgb (13.0-17.5) gm/dL Hct (39.0-53.0) % RDW (11.5-15.5) % Plt Count (150-450) k/uL APTT (22.0-30.0) sec Chloride 108 H (98-107) mmol/L Carbon Dioxide 16 L (22-30) mmol/L BUN 21 H (9-20) mg/dL Creatinine 1.70 H (0.66-1.25) mg/dL Glucose 116 H (74-99) mg/dL POC Glucose (mg/dL) 121 H 138 H (70-110) mg/dL Plasma Lactic Acid Forrest (0.7-2.0) mmol/L Total Bilirubin 1.7 H (0.2-1.3) mg/dL Total Protein 5.7 L (6.3-8.2) g/dL Albumin 3.3 L (3.5-5.0) g/dL Urine Protein (Negative) Urine Blood (Negative) Ur Leukocyte Esterase (Negative) Urine RBC (0-5) /hpf Urine WBC (0-5) /hpf Urine Bacteria (None) /hpf Urine Mucus (None) /hpf Assessment and Plan Assessment: Impression:. Urinary tract infection with sepsis. Chronic retention. Ureteral calculus status post stent placement Recommendations: The patient should continue with antibiotics. He will require stone and stent removal in approximately 10 days to 2 weeks.
[2024-03-25 16:51] LABS: Glucose,Whole Blood 149 mg/dL (70-110)
--- NOTE | 2024-03-25 17:18 | P.PN ---
Subjective Progress Note Date: 03/25/24 Hospital Course: 78 year old M with PMH of HTN, DM, BPH, KELSEY on CPAP, presents to the ED after a mechanical fall 2-3 days ago. Denies syncope but hit the back of his head. He did not seek medical attention. He reports left flank pain radiating to the LLQ over the past day. He also reports fatigue and difficulty staying awake. In the ED he underwent extensive evaluation. BP 136/69, HR 142, T 102.7F, RR 26, 94% on RA. CBC, Coag panel, CMP significant for RBC 3.82, Hg 11.2, Hct 33.5, Plt 116, APTT 21, bicarb 16, Cr 1.69, glu 140, T. Bili 1.6, alk phos 138. Lactic acid 3.1. UA large blood and mod LE. Acetone neg. COVID, RSV, Flu neg. 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 CT head and C-spine showed no acute findings. CXR neg. EKG sinus tachycardia with nonspecific ST T wave changes. Patient was started on Rocephin and Urology was consulted. He underwent cystoscopy with placement of left double-J catheter 6 x 26, replacement of indwelling catheter with Dr. Maurer on 03/24. Blood cultures growing gram-positive cocci in clusters, no resistance on the use identified, likely contamination, requested repeat blood cultures. Pertinent Imaging: No new imaging Subjective: Patient was seen and examined at bedside, complains of chills Pertinent positives and negatives as discussed above, a complete review of systems was performed and all other systems are negative. Vitals Signs Reviewed. General: [nontoxic], [no distress], [appears at stated age] Derm: [warm], [dry] Head: [atraumatic], [normocephalic], [symmetric] Eyes: [EOMI], [no lid lag], [anicteric sclera] Mouth: [no lip lesion], [mucus membranes moist] Cardiovascular: [S1S2 reg], [no murmur] Lungs: [CTA bilateral], [no rhonchi, no rales] , [no accessory muscle use] Abdominal: [soft], [ nontender to palpation], [no guarding], [no appreciable organomegaly] Ext: [no gross muscle atrophy], [no edema], [no contractures] Neuro: [ CN II-XI grossly intact], [no focal neuro deficits] Psych: [Alert], [oriented], [appropriate affect] Data Reviewed Today: Pertinent Labs: WBC 13.4, hemoglobin 10.3, platelet count 100, sodium and potassium normal, carbon dioxide 16, creatinine creatinine 1.7, GFR 44, blood glucose is controlled, total bilirubin 1.7, normal AST, ALT, alk phos Assessment and Plan: Sepsis secondary to complicated UTI Lactic acidosis secondary to above Blood cultures positive for gram-positive cocci in cluster, likely contamination Left ureteral stone with hydronephrosis status post cystoscopy with stent Thrombocytopenia Leukocytosis -Continue Rocephin 2 g IV daily -Continue IV fluids -Follow-up on urine cultures -Repeat blood cultures 03/25 -Urology following will need to follow-up in 10 to 14 days for stent removal -CBC and BMP to follow-up CKD stage III -Patient's baseline kidney function is unknown, despite continuous IV hydration, his creatinine is persistently at 1.7, with stable GFR, likely representing chronic kidney disease, patient to follow-up with nephrology as outpatient Diabetes mellitus: ISS with Accuchecks ACHS + Hypoglycemic precautions. Hypertension: Amlodipine 10 mg PO QD. Hydralazine 50 mg PO BID. BPH: Flomax 0.4 mg PO QD. Elevated total bilirubin: Levels remain stable, patient denies abdominal, follow-up with PCP KELSEY on CPAP: CPAP ordered Hypomagnesemia: Continue magnesium oxide 400 mg p.o. daily, repeat magnesium level in the morning CODE STATUS: FULL CODE DVT Prophylaxis: Heparin SQ Anticipated discharge place: Home Anticipated discharge time: 24 to 48 hours Objective - Vital Signs Vital signs: Vital Signs Temp 99.3 F 03/25/24 14:00 Pulse 101 H 03/25/24 14:00 Resp 19 03/25/24 14:00 BP 156/76 03/25/24 14:00 Pulse Ox 97 03/25/24 14:00 FiO2 30 03/25/24 17:10 Intake & Output 03/24/24 03/25/24 03/25/24 18:59 06:59 18:59 Intake Total 400 Output Total 350 850 Balance 50 -850 Weight 131.542 kg 75.5 kg Intake: IV 400 Output: Urine 350 850 Uretheral (Naqvi) 350 Estimated Blood Loss 0 Other: Voiding Method Indwelling Catheter Indwelling Catheter - Labs CBC & Chem 7: 03/25/24 04:59 03/25/24 04:59 Labs: Abnormal Lab Results - Last 24 Hours (Table) 03/24/24 03/25/24 03/25/24 Range/Units 21:25 04:59 04:59 WBC 13.4 H (3.8-10.6) k/uL RBC 3.41 L (4.30-5.90) m/uL Hgb 10.3 L (13.0-17.5) gm/dL Hct 30.7 L (39.0-53.0) % RDW 15.8 H (11.5-15.5) % Plt Count 100 L (150-450) k/uL Chloride 108 H (98-107) mmol/L Carbon Dioxide 16 L (22-30) mmol/L BUN 21 H (9-20) mg/dL Creatinine 1.70 H (0.66-1.25) mg/dL Glucose 116 H (74-99) mg/dL POC Glucose (mg/dL) 129 H (70-110) mg/dL Total Bilirubin 1.7 H (0.2-1.3) mg/dL Total Protein 5.7 L (6.3-8.2) g/dL Albumin 3.3 L (3.5-5.0) g/dL 03/25/24 03/25/24 03/25/24 Range/Units 06:16 11:22 16:50 WBC (3.8-10.6) k/uL RBC (4.30-5.90) m/uL Hgb (13.0-17.5) gm/dL Hct (39.0-53.0) % RDW (11.5-15.5) % Plt Count (150-450) k/uL Chloride (98-107) mmol/L Carbon Dioxide (22-30) mmol/L BUN (9-20) mg/dL Creatinine (0.66-1.25) mg/dL Glucose (74-99) mg/dL POC Glucose (mg/dL) 121 H 138 H 149 H (70-110) mg/dL Total Bilirubin (0.2-1.3) mg/dL Total Protein (6.3-8.2) g/dL Albumin (3.5-5.0) g/dL Microbiology - Last 24 Hours (Table) 03/24/24 12:06 Blood Culture Gram Stain - Preliminary Blood Blood Culture - Preliminary Molecular ID
[2024-03-25 20:45] LABS: Glucose,Whole Blood 172 mg/dL (70-110)
[2024-03-26 06:05] LABS: Glucose,Whole Blood 152 mg/dL (70-110)
--- NOTE | 2024-03-26 10:53 | P.PN ---
Subjective Progress Note Date: 03/26/24 Patient in the hospital with urinary tract infection with sepsis, left ureteral calculus status post stent. He has an indwelling catheter but the patient states its only been 48 to 72 hours. He does have incontinence. Objective - Vital Signs Vital signs: Vital Signs Temp 97.4 F L 03/26/24 07:22 Pulse 92 03/26/24 01:23 Resp 18 03/26/24 07:22 BP 133/76 03/26/24 07:22 Pulse Ox 97 03/26/24 07:22 FiO2 21 03/26/24 03:55 Intake & Output 03/25/24 03/26/24 03/26/24 18:59 06:59 18:59 Output Total 1800 1625 Balance -1800 -1625 Output: Urine 1800 1625 Other: Voiding Method Indwelling Catheter Indwelling Catheter Indwelling Catheter - Labs CBC & Chem 7: 03/25/24 04:59 03/25/24 04:59 Labs: Abnormal Lab Results - Last 24 Hours (Table) 03/25/24 03/25/24 03/25/24 Range/Units 11:22 16:50 20:43 POC Glucose (mg/dL) 138 H 149 H 172 H (70-110) mg/dL 03/26/24 Range/Units 06:03 POC Glucose (mg/dL) 152 H (70-110) mg/dL Microbiology - Last 24 Hours (Table) 03/24/24 12:06 Blood Culture Gram Stain - Preliminary Blood Blood Culture - Preliminary Staphylococcus hominis Molecular ID Assessment and Plan Assessment: Impression: Ureteral calculus with pyelonephrosis status post stent placement. Questionable urine retention. Recommendations: The patient will need a ureteroscopy and laser lithotripsy to the stone in a couple of weeks. I will remove the catheter for voiding trial today.
[2024-03-26 10:57] LABS: Basophils # (A) 0.03 X 10*3/uL (0.00-0.10); Basophils % (A) 0.3 %; Eosinophils # (A) 0.09 X 10*3/uL (0.04-0.35); Eosinophils % (A) 0.9 %; HCT 27.3 % (39.6-50.0); HGB 9.3 g/dL (13.0-17.0); Lymphocytes % (A) 8.6 %; MCH 29.7 pg (27.0-32.0); MCHC 34.1 g/dL (32.0-37.0); MCV 87.2 FL (80.0-97.0); Mean Platelet Volume 12.2 FL (9.5-12.2); Microcytosis (M) 2+ (None Seen); Monocytes # (A) 0.54 X 10*3/uL (0.20-1.00); Monocytes % (A) 5.2 %; NRBC Per 100 WBC 0 X 10*3/uL (0.00-0.01); Neutrophils # (A) 8.85 X 10*3/uL (1.80-7.70); Neutrophils % (A) 84.3 %; Platelet Count 96 X 10*3/uL (140-440); RBC 3.13 X 10*6/uL (4.40-5.60); RDW 14.6 % (11.5-14.5); WBC 10.48 X 10*3/uL (4.50-10.00)
[2024-03-26 11:23] LABS: Glucose,Whole Blood 164 mg/dL (70-110)
[2024-03-26 12:43] LABS: BUN/Creat Ratio 11.88 Ratio (12.00-20.00); Bilirubin, Conjugated 0.39 mg/dL (0.20-0.40); Bilirubin,Unconjugated 0.41 mg/dL (0.20-1.00); Blood Urea Nitrogen 20.2 mg/dL (9.0-27.0); Carbon Dioxide 19.3 mmol/L (21.6-31.8); Chloride 110 mmol/L (96-109); Glucose 130 mg/dL (70-110); Magnesium 1.8 mg/dL (1.5-2.4); Potassium 4.2 mmol/L (3.5-5.5); Sodium 139 mmol/L (135-145); Total Bilirubin 0.8 mg/dL (0.3-1.2)
--- NOTE | 2024-03-26 14:06 | P.PN ---
Subjective Progress Note Date: 03/26/24 Hospital Course: 78 year old M with PMH of HTN, DM, BPH, KELSEY on CPAP, presents to the ED after a mechanical fall 2-3 days ago. Denies syncope but hit the back of his head. He did not seek medical attention. He reports left flank pain radiating to the LLQ over the past day. He also reports fatigue and difficulty staying awake. In the ED he underwent extensive evaluation. BP 136/69, HR 142, T 102.7F, RR 26, 94% on RA. CBC, Coag panel, CMP significant for RBC 3.82, Hg 11.2, Hct 33.5, Plt 116, APTT 21, bicarb 16, Cr 1.69, glu 140, T. Bili 1.6, alk phos 138. Lactic acid 3.1. UA large blood and mod LE. Acetone neg. COVID, RSV, Flu neg. 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 CT head and C-spine showed no acute findings. CXR neg. EKG sinus tachycardia with nonspecific ST T wave changes. Patient was started on Rocephin and Urology was consulted. He underwent cystoscopy with placement of left double-J catheter 6 x 26, replacement of indwelling catheter with Dr. Maurer on 03/24. 04/23 Naqvi catheter removed, voiding trial Blood cultures growing gram-positive cocci in clusters, no resistance on the use identified, likely contamination, requested repeat blood cultures. Urine cultures growing gram-negative bacilli Pertinent Imaging: No new imaging Subjective: Patient was seen and examined at bedside, no new complaints today, Pertinent positives and negatives as discussed above, a complete review of systems was performed and all other systems are negative. Vitals Signs Reviewed. General: [nontoxic], [no distress], [appears at stated age] Derm: [warm], [dry] Head: [atraumatic], [normocephalic], [symmetric] Eyes: [EOMI], [no lid lag], [anicteric sclera] Mouth: [no lip lesion], [mucus membranes moist] Cardiovascular: [S1S2 reg], [no murmur] Lungs: [CTA bilateral], [no rhonchi, no rales] , [no accessory muscle use] Abdominal: [soft], [ nontender to palpation], [no guarding], [no appreciable organomegaly] Ext: [no gross muscle atrophy], [no edema], [no contractures] Neuro: [ CN II-XI grossly intact], [no focal neuro deficits] Psych: [Alert], [oriented], [appropriate affect] Data Reviewed Today: Pertinent Labs: WBC 10.4, hemoglobin 9.3, platelet count 96, sodium and potass ium normal, carbon dioxide 19, creatinine creatinine 1.7, , blood glucose is controlled, total bilirubin 0.8 normal Assessment and Plan: Sepsis secondary to complicated UTI, gram-negative bacilli growing in the urine Lactic acidosis secondary to above Blood cultures positive for gram-positive cocci in cluster, likely contamination Left ureteral stone with hydronephrosis status post cystoscopy with stent Thrombocytopenia Leukocytosis -Continue Rocephin 2 g IV daily -Discontinue e IV fluids -Follow-up on urine cultures, preliminary gram-negative bacilli -Repeat blood cultures 03/25 pending -Urology following will need to follow-up in 10 to 14 days for stent remov -Naqvi catheter removal 03/26, void trial l CKD stage III -Patient's baseline kidney function is unknown, despite continuous IV hydration, his creatinine is persistently at 1.7, with stable GFR, likely representing chronic kidney disease, patient to follow-up with nephrology as outpatient Diabetes mellitus: ISS with Accuchecks ACHS + Hypoglycemic precautions. Hypertension: Amlodipine 10 mg PO QD. Hydralazine 50 mg PO BID. BPH: Flomax 0.4 mg PO QD. Elevated total bilirubin: Resolved KELSEY on CPAP: CPAP ordered Hypomagnesemia: Continue magnesium oxide 400 mg p.o. daily, repeat magnesium level in the morning CODE STATUS: FULL CODE DVT Prophylaxis: Heparin SQ Anticipated discharge place: Home Anticipated discharge time: 24hr Objective - Vital Signs Vital signs: Vital Signs Temp 97.4 F L 03/26/24 07:22 Pulse 92 03/26/24 01:23 Resp 18 03/26/24 07:22 BP 133/76 03/26/24 07:22 Pulse Ox 97 03/26/24 07:22 FiO2 21 03/26/24 03:55 Intake & Output 03/25/24 03/26/24 03/26/24 18:59 06:59 18:59 Output Total 1800 1625 1600 Balance -1800 -1625 -1600 Output: Urine 1800 1625 1600 Uretheral (Naqvi) 1600 Other: Voiding Method Indwelling Catheter Indwelling Catheter Indwelling Catheter - Labs CBC & Chem 7: 03/26/24 02:39 03/26/24 02:39 Labs: Abnormal Lab Results - Last 24 Hours (Table) 03/25/24 03/25/24 03/26/24 Range/Units 16:50 20:43 02:39 WBC (4.50-10.00) X 10*3/uL RBC (4.40-5.60) X 10*6/uL Hgb (13.0-17.0) g/dL Hct (39.6-50.0) % RDW (11.5-14.5) % Plt Count (140-440) X 10*3/uL Immature Gran # (0.00-0.04) X 10*3/uL Neutrophils # (1.80-7.70) X 10*3/uL Microcytosis (manual) (None Seen) Chloride 110 H (96-109) mmol/L Carbon Dioxide 19.3 L (21.6-31.8) mmol/L Creatinine 1.7 H (0.6-1.5) mg/dL Est GFR (CKD-EPI) 40 L (>=60) BUN/Creatinine Ratio 11.88 L (12.00-20.00) Ratio Glucose 130 H (70-110) mg/dL POC Glucose (mg/dL) 149 H 172 H (70-110) mg/dL 03/26/24 03/26/24 03/26/24 Range/Units 02:39 06:03 11:22 WBC 10.48 H (4.50-10.00) X 10*3/uL RBC 3.13 L (4.40-5.60) X 10*6/uL Hgb 9.3 L (13.0-17.0) g/dL Hct 27.3 L (39.6-50.0) % RDW 14.6 H (11.5-14.5) % Plt Count 96 L (140-440) X 10*3/uL Immature Gran # 0.07 H (0.00-0.04) X 10*3/uL Neutrophils # 8.85 H (1.80-7.70) X 10*3/uL Microcytosis (manual) 2+ A (None Seen) Chloride (96-109) mmol/L Carbon Dioxide (21.6-31.8) mmol/L Creatinine (0.6-1.5) mg/dL Est GFR (CKD-EPI) (>=60) BUN/Creatinine Ratio (12.00-20.00) Ratio Glucose (70-110) mg/dL POC Glucose (mg/dL) 152 H 164 H (70-110) mg/dL Microbiology - Last 24 Hours (Table) 03/24/24 13:54 Urine Culture - Preliminary Urine,Catheterized Gram Neg Bacilli 03/24/24 12:06 Blood Culture Gram Stain - Preliminary Blood Blood Culture - Preliminary Staphylococcus hominis Molecular ID
[2024-03-26 20:43] LABS: Glucose,Whole Blood 165 mg/dL (70-110)
[2024-03-27 02:20] VITALS: PULSE 85; RESP 19
[2024-03-27 06:05] LABS: Glucose,Whole Blood 135 mg/dL (70-110)
[2024-03-27 10:51] VITALS: BP 164/80; TEMP 98.2
--- NOTE | 2024-03-27 11:12 | P.DS ---
Providers Date of admission: 03/24/24 15:29 Attending physician: Tano Carmichael Consults: 03/24/24 14:32 Consult Physician Urgent Consulting Provider: Kenji Maurer Consult Reason/Comments: Left ureteral calculus Do you want consulting provider notified?: Already Contacted [facility] Course: Discharge Diagnosis: Sepsis secondary to complicated UTI, gram-negative bacilli growing in the urine Lactic acidosis secondary to above Blood cultures positive for gram-positive cocci in cluster, likely contamination Left ureteral stone with hydronephrosis status post cystoscopy with stent Thrombocytopenia Leukocytosis CKD stage III Type II DM Hypertension BPH KELSEY on CPAP Hypomagnesemia Hospital Course: 78 year old M with PMH of HTN, DM, BPH, KELSEY on CPAP, presents to the ED after a mechanical fall 2-3 days ago. Denies syncope but hit the back of his head. He did not seek medical attention. He reports left flank pain radiating to the LLQ over the past day. He also reports fatigue and difficulty staying awake. In the ED he underwent extensive evaluation. BP 136/69, HR 142, T 102.7F, RR 26, 94% on RA. CBC, Coag panel, CMP significant for RBC 3.82, Hg 11.2, Hct 33.5, Plt 116, APTT 21, bicarb 16, Cr 1.69, glu 140, T. Bili 1.6, alk phos 138. Lactic acid 3.1. UA large blood and mod LE. Acetone neg. COVID, RSV, Flu neg. 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 CT head and C-spine showed no acute findings. CXR neg. EKG sinus tachycardia with nonspecific ST T wave changes. Patient was started on Rocephin and Urology was consulted. He underwent cystoscopy with placement of left double-J catheter 6 x 26, replacement of indwelling catheter with Dr. Maurer on 03/24. 04/23 Naqvi catheter removed, voiding trial Blood cultures growing gram-positive cocci in clusters, no resistance on the use identified, likely contamination, requested repeat blood cultures-no growth at 24 hours. Patient has been afebrile with stable vitals, urine cultures growing gram-negative bacilli. He will complete antibiotics with Bactrim for total 7 days of treatment for complicated UTI. Patient will follow-up with urologist in 1 week for ureteroscopy and laser lithotripsy. Prescription sent for magnesium oxide due to persistent hypomagnesemia. Patient to follow-up with PCP for Patient seen and examined at bedside. Feels well, denies any complaints, would like to be discharged home Vital signs reviewed and stable. General: [nontoxic], [no distress], [appears at stated age] Derm: [warm], [dry] Head: [atraumatic], [normocephalic], [symmetric] Eyes: [EOMI], [no lid lag], [anicteric sclera] Mouth: [no lip lesion], [mucus membranes moist] Cardiovascular: [S1S2 reg], [no murmur] Lungs: [CTA bilateral], [no rhonchi, no rales] , [no accessory muscle use] Abdominal: [soft], [ nontender to palpation], [no guarding], [no appreciable organomegaly] Ext: [no gross muscle atrophy], [no edema], [no contractures] Neuro: [ CN II-XI grossly intact], [no focal neuro deficits] Psych: [Alert], [oriented], [appropriate affect] A total of 40 minutes of time were spent preparing this complex discharge summary. Patient was discharged on 03/27/2024. Plan - Discharge Summary New Discharge Prescriptions: New Sulfamethox-Tmp 800-160Mg [Bactrim DS 800-160 mg] 1 tab PO Q12HR #8 tab Magnesium Oxide [Mag-Ox] 400 mg PO DAILY #30 tablet Continue Tamsulosin [Flomax] 0.4 mg PO DAILY metFORMIN HCL [Glucophage] 750 mg PO DAILY Insulin Glargine,Hum.rec.anlog [Lantus Solostar Pen] 60 units SQ DAILY Atorvastatin [Lipitor] 40 mg PO HS hydrALAZINE HCL [Apresoline] 50 mg PO BID amLODIPine [Norvasc] 10 mg PO DAILY Losartan Potassium [Cozaar] 100 mg PO DAILY Fluticasone Nasal [place] [Flonase Nasal [place]] 1 spray EA NOSTRIL BID PRN PRN Reason: Allergy Symptoms Ferrous Sulfate [Iron (65 MG Elemental)] 325 mg PO DAILY Mirabegron [Myrbetriq] 50 mg PO DAILY Loratadine [Claritin] 10 mg PO DAILY Dulaglutide [Trulicity] 3 mg SQ TU Discharge Medication List Atorvastatin [Lipitor] 40 mg PO HS 03/24/24 [History] Dulaglutide [Trulicity] 3 mg SQ TU 03/24/24 [History] Ferrous Sulfate [Iron (65 MG Elemental)] 325 mg PO DAILY 03/24/24 [History] Fluticasone Nasal [place] [Flonase Nasal [place]] 1 spray EA NOSTRIL BID PRN 03/24/24 [History] Insulin Glargine,Hum.rec.anlog [Lantus Solostar Pen] 60 units SQ DAILY 03/24/24 [History] Loratadine [Claritin] 10 mg PO DAILY 03/24/24 [History] Losartan Potassium [Cozaar] 100 mg PO DAILY 03/24/24 [History] Mirabegron [Myrbetriq] 50 mg PO DAILY 03/24/24 [History] Tamsulosin [Flomax] 0.4 mg PO DAILY 03/24/24 [History] amLODIPine [Norvasc] 10 mg PO DAILY 03/24/24 [History] hydrALAZINE HCL [Apresoline] 50 mg PO BID 03/24/24 [History] metFORMIN HCL [Glucophage] 750 mg PO DAILY 03/24/24 [History] Magnesium Oxide [Mag-Ox] 400 mg PO DAILY #30 tablet 03/27/24 [Rx] Sulfamethox-Tmp 800-160Mg [Bactrim DS 800-160 mg] 1 tab PO Q12HR #8 tab 03/27/24 [Rx] Follow up Appointment(s)/Referral(s): Loc Bell DO [Primary Care Provider] - 1-2 days Kenji Maurer MD [STAFF PHYSICIAN] - 1 Week Patient Instructions/Handouts: Urinary Tract Infection in Men (GEN) Activity/Diet/Wound Care/Special Instructions: Please follow-up with your primary care physician. Please complete your antibiotics with Bactrim twice a day for 4 more days starting 03/28/2024. Make sure you stay hydrated It was a pleasure to take care of you. Discharge Disposition: HOME SELF-CARE
--- NOTE | 2024-03-27 11:12 | P.PN ---
Subjective Progress Note Date: 03/27/24 In the hospital status post placement of a double-J catheter for a urinary tract infection with an obstructing left ureteral stone and pyelonephrosis. The catheter was removed yesterday and he is voiding adequately Objective - Vital Signs Vital signs: Vital Signs Temp 98.2 F 03/27/24 07:30 Pulse 85 03/27/24 07:30 Resp 19 03/27/24 07:30 BP 164/80 03/27/24 07:30 Pulse Ox 97 03/27/24 07:30 FiO2 21 03/26/24 03:55 Intake & Output 03/26/24 03/27/24 03/27/24 18:59 06:59 18:59 Output Total 1600 Balance -1600 Weight 92.5 kg Output: Urine 1600 Uretheral (Naqvi) 1600 Other: Voiding Method Indwelling Catheter Diaper Diaper # Voids 1 3 - Labs CBC & Chem 7: 03/26/24 02:39 03/26/24 02:39 Labs: Abnormal Lab Results - Last 24 Hours (Table) 03/26/24 03/26/24 03/26/24 Range/Units 02:39 11:22 20:42 Chloride 110 H (96-109) mmol/L Carbon Dioxide 19.3 L (21.6-31.8) mmol/L Creatinine 1.7 H (0.6-1.5) mg/dL Est GFR (CKD-EPI) 40 L (>=60) BUN/Creatinine Ratio 11.88 L (12.00-20.00) Ratio Glucose 130 H (70-110) mg/dL POC Glucose (mg/dL) 164 H 165 H (70-110) mg/dL 03/27/24 Range/Units 06:03 Chloride (96-109) mmol/L Carbon Dioxide (21.6-31.8) mmol/L Creatinine (0.6-1.5) mg/dL Est GFR (CKD-EPI) (>=60) BUN/Creatinine Ratio (12.00-20.00) Ratio Glucose (70-110) mg/dL POC Glucose (mg/dL) 135 H (70-110) mg/dL Microbiology - Last 24 Hours (Table) 03/25/24 15:38 Blood Culture - Preliminary Blood 03/24/24 13:54 Urine Culture - Preliminary Urine,Catheterized Gram Neg Bacilli Assessment and Plan Assessment: Impression: From a urologic standpoint the patient may be discharged home when medically stable. He will need a stone and stent removal in the near future.
[2024-03-27 11:22] LABS: Glucose,Whole Blood 165 mg/dL (70-110)
[2024-03-29] MEDS ORDERED: Dulaglutide [Trulicity] 3 MG/0.5 ML Each SQ SCH (09:00)
--- NOTE | 2024-03-29 10:46 | CDI ---
Documentation Clarification Form Date: From: Mary Arreaga Phone: Admit Date: 03/24/2024 03:29:00 PM Patient Name: Harry Milligan Visit Number: [id number] Discharge Date: 03/27/2024 01:35:00 PM ATTENTION: The Clinical Documentation Specialists (CDI) and [facility] Coding Staff appreciate your assistance in clarifying documentation. Please respond to the clarification below the line at the bottom and electronically sign. The CDI & [facility] Coding staff will review the response and follow-up if needed. Please note: Queries are made part of the Legal Health Record. If you have any questions, please contact the author of this message via ITS. Doctor/Provider: Kenji Maurer UTI is documented in H/P note on 03/24 and patient has [chronic indwelling catheter]. Additional clarification regarding the etiology of the UTI is requested. History/Risk Factors: 78 year old M with PMH ofHTN,DM,BPHpresents to the ED after amechanical fall2-3 days ago. Deniessyncopebut hit the back of his head. He did not seek medical attention. He reports leftflank painradiating to the LLQ over the past day. He also reportsfatigueand difficulty staying awake. Clinical Indicators: In the ED he underwent extensiveevaluation. BP 136/69, HR 142, T 102. 7F, RR 26, 94% onRA. CBC, Coag panel, CMP significant for RBC 3. 82, Hg 11. 2, Hct 33. 5, Plt 116, APTT 21, bicarb 16, Cr 1. 69, glu 140, T. Bili 1. 6, alk phos 138. Lactic acid 3. 1. UA large blood and mod LE. Acetone neg. COVID,RSV,Fluneg. CTAP showedleft hydronephrosiswith 2 mm left midureter stone, severe degenerative changes of the spine and heparinsteatosis. On 03/24 consult note -Urinary tract infection. Left ureteral stonewithobstructionand probablepyelonephritischronic indwelling catheter Pn on 03/25 -Patient was started on Rocephin and Urology was consulted. He underwent cystoscopywithplacementof left double-J catheter 6 x 26,replacementof indwelling catheter withDr. Aranda 03/24. Pn on 03/27 -In the hospitalstatus postplacementof a double-J catheter for aurinary tract infectionwith anobstructingleft ureteral stoneandpyelonephrosis. The catheter was removedyesterday and he is voiding adequately Blood cultures growing gram-positive cocci in clusters,noresistanceon the use identified, likely contamination, requested repeat blood cultures. Treatment: Patient was started on Rocephin and Urology was consulted. He underwent cystoscopywithplacementof left double-J catheter 6 x 26,replacementof indwelling catheter Please clarify the etiology of the UTI, if known: [ ] Naqvi catheter [ ] UTI not related to catheter/urostomy [ ] Other condition, please specify [ ] Unable to determine (Template Last Revised: April 2020) MTDD
--- NOTE | 2024-04-01 13:31 | CDI ---
Documentation Clarification Form Date: From: Mary Arreaga Phone: Admit Date: 03/24/2024 03:29:00 PM Patient Name: Harry Milligan Visit Number: [id number] Discharge Date: 03/27/2024 01:35:00 PM ATTENTION: The Clinical Documentation Specialists (CDI) and [facility] Coding Staff appreciate your assistance in clarifying documentation.Please respond to the clarification below the line at the bottom and electronically sign.The CDI [facility] Coding staff will review the response and follow-up if needed.Please note: Queries are made part of the Legal Health Record.If you have any questions, please contact the author of this message via ITS. Doctor/Provider: Kenji Maurer acknowledge - Query was signed without answer UTI is documented in H/P note on 03/24 and patient has [chronic indwelling catheter].Additional clarification regarding the etiology of the UTI is requested. History/Risk Factors: 78 year old M with PMH of HTN, DM, BPH presents to the ED after a mechanical fall 2-3 days ago.Denies syncope but hit the back of his head.He did not seek medical attention.He reports left flank pain radiating to the LLQ over the past day.He also reports fatigue and difficulty staying awake. Clinical Indicators: In the ED he underwent extensive evaluation.BP 136/69, HR 142, T 102. 7F, RR 26, 94% on RA.CBC, Coag panel, CMP significant for RBC 3. 82, Hg 11. 2, Hct 33. 5, Plt 116, APTT 21, bicarb 16, Cr 1. 69, glu 140, T. Bili 1. 6, alk phos 138.Lactic acid 3. 1.UA large blood and mod LE. 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 On 03/24 consult note -Urinary tract infection.Left ureteral stone with obstruction and probable pyelonephritis chronic indwelling catheter Pn on 03/25 -Patient was started on Rocephin and Urology was consulted.He underwent cystoscopy with placement of left double-J catheter 6 x 26, replacement of indwelling catheter with on 03/24. Pn on 03/27 -In the hospital status post placement of a double-J catheter for a urinary tract infection with an obstructing left ureteral stone and pyelonephrosis.The catheter was removed yesterday and he is voiding adequately Blood cultures growing gram-positive cocci in clusters, no resistance on the use identified, likely contamination, requested repeat blood cultures. Treatment: Patient was started on Rocephin and Urology was consulted.He underwent cystoscopy with placement of left double-J catheter 6 x 26, replacement of indwelling catheter Please clarify the etiology of the UTI, if known: [ ] Naqvi catheter [ ] UTI not related to catheter/urostomy [ ] Other condition, please specify [ ] Unable to determine (Template Last Revised: April 2020) The uti was probably due to the indweling catheter MTDD
== END 2024-03-27 13:35 | disposition home or self-care (01) | DRG 659 ==
LOC: EC 11:33 → 3SCARD 15:29 → 1SOBS 16:08 → 4SSUR 16:59
PROVIDERS: ADMIT Student in an Organized Health Care Education/Training Program; ATTEND Student in an Organized Health Care Education/Training Program
PROC: 0T2BX0Z Change Drainage Device in Bladder, External Approach (ICD-10-PCS; 2024-03-24)
PROC: 0T778DZ Dilation of Left Ureter with Intraluminal Device, Via Natural or Artificial Opening Endoscopic (ICD-10-PCS; principal; 2024-03-24 14:45)
DX: T83.511A Infection and inflammatory reaction due to indwelling urethral catheter, initial encounter (principal); A41.9 Sepsis, unspecified organism; E87.20 Acidosis, unspecified; N13.6 Pyonephrosis; D69.6 Thrombocytopenia, unspecified; E11.22 Type 2 diabetes mellitus with diabetic chronic kidney disease; N18.30 Chronic kidney disease, stage 3 unspecified; I12.9 Hypertensive chronic kidney disease with stage 1 through stage 4 chronic kidney disease, or unspecified chronic kidney disease; N17.9 Acute kidney failure, unspecified; N40.0 Benign prostatic hyperplasia without lower urinary tract symptoms; G47.33 Obstructive sleep apnea (adult) (pediatric); M54.9 Dorsalgia, unspecified; E80.6 Other disorders of bilirubin metabolism; R33.9 Retention of urine, unspecified; R32 Unspecified urinary incontinence; E83.42 Hypomagnesemia; Z79.84 Long term (current) use of oral hypoglycemic drugs; Z88.0 Allergy status to penicillin; Z88.8 Allergy status to other drugs, medicaments and biological substances; Z87.891 Personal history of nicotine dependence
CPT/HCPCS: 36415; 51702; 70450; 71046; 72125; 74176; 80048; 80053; 81001; 82009; 82248; 83605; 83690; 83735; 83880; 85025; 85027; 85610; 85730; 87040; 87077; 87086; 87186; 87636; 93005; 94660; 96361; 96365; 96366; 96375; 99285

== ENCOUNTER 2024-04-06 05:50 | Day surgery (SDC) | payer MEDICARE, OTHER ==
--- NOTE | 2024-04-05 13:06 | P.GSHP ---
History of Present Illness H&P Date: 04/05/24 79-year-old gentleman recently in the hospital with an infected left ureteral calculus. I placed a left ureteral stent on 03/24/2024. He has been treated appropriately with antibiotics. He now comes for formal left stent and stone removal. - Constitutional Constitutional: Denies chills, Denies fever - EENT Eyes: denies blurred vision, denies pain Ears, nose, mouth and throat: Denies headache, Denies sore throat - Cardiovascular Cardiovascular: Denies chest pain, Denies shortness of breath - Respiratory Respiratory: Denies cough, Denies 7 - Gastrointestinal Gastrointestinal: Denies abdominal pain, Denies diarrhea, Denies nausea, Denies vomiting - Genitourinary (Female) Genitourinary: Denies dysuria, Denies hematuria - Genitourinary (Male) Genitourinary: Denies dysuria, Denies hematuria - Musculoskeletal Musculoskeletal: Denies myalgias - Integumentary Integumentary: Denies pruritus, Denies rash - Neurological Neurological: Denies numbness, Denies weakness - Psychiatric Psychiatric: Denies anxiety, Denies depression - Endocrine Endocrine: Denies fatigue, Denies weight change Past Medical History Past Medical History: Diabetes Mellitus, Hyperlipidemia, Hypertension Additional Past Medical History / Comment(s): kidney stones History of Any Multi-Drug Resistant Organisms: None Reported Additional Past Surgical History / Comment(s): kidney stent Past Anesthesia/Blood Transfusion Reactions: No Reported Reaction Smoking Status: Former smoker - Past Family History Mother History Unknown: Yes Medications and Allergies Home Medications Medication Instructions Recorded Confirmed Type Atorvastatin [Lipitor] 40 mg PO HS 03/24/24 04/05/24 History Dulaglutide [Trulicity] 3 mg SQ TU 03/24/24 04/05/24 History Ferrous Sulfate [Iron (65 MG 325 mg PO DAILY 03/24/24 04/05/24 History Elemental)] Fluticasone Nasal [place] [Flonase 1 spray EA NOSTRIL BID PRN 03/24/24 04/05/24 History Nasal [place]] Insulin Glargine,Hum.rec.anlog 60 units SQ DAILY 03/24/24 04/05/24 History [Lantus Solostar Pen] Loratadine [Claritin] 10 mg PO DAILY 03/24/24 04/05/24 History Losartan Potassium [Cozaar] 100 mg PO DAILY 03/24/24 04/05/24 History Mirabegron [Myrbetriq] 50 mg PO DAILY 03/24/24 04/05/24 History Tamsulosin [Flomax] 0.4 mg PO DAILY 03/24/24 04/05/24 History amLODIPine [Norvasc] 10 mg PO DAILY 03/24/24 04/05/24 History hydrALAZINE HCL [Apresoline] 50 mg PO BID 03/24/24 04/05/24 History metFORMIN HCL [Glucophage] 750 mg PO DAILY 03/24/24 04/05/24 History Magnesium Oxide [Mag-Ox] 400 mg PO DAILY #30 tablet 03/27/24 04/05/24 Rx Vit C/E/Zn/Coppr/Lutein/Zeaxan 1 tab PO DAILY 04/05/24 04/05/24 History [Preservision Areds 2 Softgel] Allergies Allergy/AdvReac Type Severity Reaction Status Date / Time lisinopril Allergy Unknown Verified 04/05/24 10:40 semaglutide [From Ozempic] Allergy Unknown Verified 04/05/24 10:40 trospium Allergy Unknown Verified 04/05/24 10:40 oxybutynin AdvReac Unknown Verified 04/05/24 10:40 Childhood Surgical - Exam - General well developed, well nourished, no distress - Eyes normal ocular movement, no icteric - ENT no hearing loss, no congestion - Neck no masses, trachea midline - Respiratory normal respiratory effort, clear to auscultation - Abdomen Abdomen: soft, non tender, no guarding, no rigid, no rebound - Integumentary no rash, no abnormal pigmentation - Neurologic no disoriented, no combative - Psychiatric oriented to time, oriented to person, oriented to place, speech is normal, memory intact Results - Imaging CT scan - abdomen: report reviewed, image reviewed CT scan - pelvis: report reviewed, image reviewed Assessment and Plan Assessment: Pression: Left ureteral calculus status post left ureteral stent placement for infection. Recommendations: Patient will undergo cystoscopy left ureteroscopy laser lithotripsy stent and stone removal.
[2024-04-06] MEDS ORDERED: DEXAMETHASONE SOD PHOSPHATE 4 MG/ML 1 ML VIAL IV ONE (06:14)
[2024-04-06] MEDS ORDERED: HYDROmorphone 0.5 MG/0.5 ML SYRINGE IVP PRN (06:14)
--- NOTE | 2024-04-06 06:19 | XR ---
EXAMINATION TYPE: XR KUB DATE OF EXAM: 04/06/2024 6:13 AM CLINICAL HISTORY: Left ureter stone. TECHNIQUE: Two supine KUB images of the abdomen are obtained. COMPARISON: CT abdomen and pelvis 13 days earlier. FINDINGS: There is new left-sided ureter stent. No definite nephrolithiasis. There is multilevel spurring and bridging osteophytes in the thoracolumbar spine. Overall nonobstruct julio bowel gas pattern. IMPRESSION: As above. [facility], , 04/06/2024 6:17 AM
[2024-04-06] MEDS: LACTATED RINGERS 1,000 ML IV ONE ×2 (06:43→08:55)
[2024-04-06 06:57] LABS: Glucose,Whole Blood 127 mg/dL (70-110)
[2024-04-06] MEDS: LACTATED RINGERS 1,000 ML IV SCH (07:04)
[2024-04-06] MEDS: ONDANSETRON 4 MG/2 ML VIAL IVP ONE (07:04)
[2024-04-06 07:15] LABS: Basophils % (A) 0 %; Eosinophils # (A) 0.2 k/uL (0-0.7); Eosinophils % (A) 3 %; HCT 30.7 % (39.0-53.0); HGB 10.1 gm/dL (13.0-17.5); Lymphocytes % (A) 16 %; MCH 29.2 pg (25.0-35.0); MCHC 32.9 g/dL (31.0-37.0); Mean Platelet Volume 7.6; Monocytes # (A) 0.3 k/uL (0-1.0); Monocytes % (A) 4 %; Neutrophils # (A) 5.1 k/uL (1.3-7.7); Neutrophils % (A) 76 %; Platelet Count 145 k/uL (150-450); RBC 3.45 m/uL (4.30-5.90); RDW 14.8 % (11.5-15.5); WBC 6.7 k/uL (3.8-10.6)
[2024-04-06 07:22] LABS: ALT 21 U/L (4-49); AST 21 U/L (17-59); African American GFR (CKD) 48 (>60 ml/min/1.73 sqM); Alkaline Phosphatase 117 U/L (38-126); Anion Gap 11 mmol/L; Blood Urea Nitrogen 21 mg/dL (9-20); Calcium 9.7 mg/dL (8.4-10.2); Carbon Dioxide 19 mmol/L (22-30); Chloride 107 mmol/L (98-107); Glucose 120 mg/dL (74-99); Non-African American GFR(CKD) 41 (>60 ml/min/1.73 sqM); Potassium 4.6 mmol/L (3.5-5.1); Sodium 137 mmol/L (137-145); Total Bilirubin 0.9 mg/dL (0.2-1.3); Total Protein 6.5 g/dL (6.3-8.2)
[2024-04-06] MEDS ORDERED: SUCCINYLCHOLINE CHLORIDE 200 MG/10 ML VIAL IV ONE (07:23)
[2024-04-06] MEDS ORDERED: PROPOFOL 10 MG/ML 20 ML VIAL IV ONE (07:23)
[2024-04-06] MEDS ORDERED: fentaNYL (PF) 50 MCG/ML 2 ML AMP ONE (07:23)
[2024-04-06] MEDS ORDERED: LIDOCAINE 1% INJ 10MG/ML (20 ML MDV) ONE (07:23)
--- NOTE | 2024-04-06 08:11 | P.OP ---
Date of Procedure: 04/06/24 Preoperative Diagnosis: left ureteral stone with stent Postoperative Diagnosis: same Procedure(s) Performed: cystoscopy, removal double-J catheter left, left ureteroscopy with laser lithotripsy Anesthesia: ALFONSO Surgeon: Kenji Maurer Estimated Blood Loss (ml): 0 Pathology: none sent Condition: stable Disposition: PACU Indications for Procedure: the patient is 79. He recently was in the hospital with an obstructing left ureteral stone, urinary tract infection with sepsis and pyelonephrosis left. He underwent placement of stent and antibiotic treatment. He now comes for stone and stent Description of Procedure: patient brought to the operating suite. Given a general anesthetic. Placed lithotomy position with a sterile prep and drape. Cystoscopy Foroblique lens and 21-Yakut sheath identifies a normal anterior urethra. 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 The bladder wall shows heavy trabeculation. There is no tumor stone. The stent is identified from the left ureteral orifice. It is grasped and pulled to the urethral meatus. An 035 wires and passed through the stent up into the kidney. I removed the cystoscope and then pass a semirigid rigid ureteroscope up into the left ureter. The stone was seen. With the 272 laser probe the stone is dusted and drained out of the left ureter. I passed the ureteroscope up into the proximal ureter is no remaining stone. Pullout ureteroscopy does not identify any remaining stones. There is not enough edema to leave a stent.the ureteroscope is removed. The bladder is drained. The patient is awakened and returned recovery room in good condition. He'll be discharged home upon recovery.
[2024-04-06 08:12] VITALS: TEMP 97.3
[2024-04-06 08:19] LABS: Glucose,Whole Blood 128 mg/dL (70-110)
--- NOTE | 2024-04-06 08:23 | FL ---
Fluoroscopy INDICATION: Pain FINDINGS: Fluoroscopy time: 3 seconds. Total dose area product (DAP) in uGy*m?, mGy*cm? (or similar): 0.9295 Images obtained: 2. Images document left ureteroscopy IMPRESSION: 1. Documentation of fluoroscopy. [facility], , 04/06/2024 8:20 AM
[2024-04-06 09:37] VITALS: BP 151/70; PULSE 62; RESP 18
== END 2024-04-06 09:51 | disposition home or self-care (01) ==
LOC: OR 05:50
PROVIDERS: ATTEND Urology
DX: N20.1 Calculus of ureter (principal); E11.9 Type 2 diabetes mellitus without complications; I10 Essential (primary) hypertension; G47.33 Obstructive sleep apnea (adult) (pediatric); E78.5 Hyperlipidemia, unspecified; Z99.89 Dependence on other enabling machines and devices; Z87.891 Personal history of nicotine dependence; Z87.442 Personal history of urinary calculi; Z87.440 Personal history of urinary (tract) infections; Z88.0 Allergy status to penicillin; Z88.8 Allergy status to other drugs, medicaments and biological substances; Z79.4 Long term (current) use of insulin; Z79.84 Long term (current) use of oral hypoglycemic drugs; Z79.899 Other long term (current) drug therapy
CPT/HCPCS: 80053; 85025; 74018; 52356; C1769; J0330; J2405; J2003; J3010; J2704

== ENCOUNTER → 2024-04-12 | Outpatient (CLI) | payer OTHER | LOC: CPPFTMAIN 08:14 | PROVIDERS: ATTEND Family Medicine | DX: R06.00 Dyspnea, unspecified (principal); Z88.8 Allergy status to other drugs, medicaments and biological substances; Z88.0 Allergy status to penicillin; Z91.018 Allergy to other foods | CPT/HCPCS: 94060; 94726; 94729 ==

== ENCOUNTER → 2024-08-04 | Outpatient (CLI) | payer MEDICARE ==
[2024-08-04 11:12] LABS: Partial Thromboplastin Time 26.2 sec (22.0-30.0); Prothrombin Time 11.5 sec (10.0-12.5)
[2024-08-04 15:12] LABS: HCT 31.7 % (39.6-50.0); HGB 10.6 g/dL (13.0-17.0); MCH 29.8 pg (27.0-32.0); MCHC 33.4 g/dL (32.0-37.0); Mean Platelet Volume 11.2 FL (9.5-12.2); NRBC Per 100 WBC 0 X 10*3/uL (0.00-0.01); Platelet Count 102 X 10*3/uL (140-440); RBC 3.56 X 10*6/uL (4.40-5.60); RDW 14.7 % (11.5-14.5); WBC 6.46 X 10*3/uL (4.50-10.00)
[2024-08-04 15:26] LABS: BUN/Creat Ratio 13.59 Ratio (12.00-20.00); Blood Urea Nitrogen 23.1 mg/dL (9.0-27.0); Chloride 106 mmol/L (96-109); Glucose 164 mg/dL (70-110); Potassium 4.6 mmol/L (3.5-5.5); Sodium 140 mmol/L (135-145)
[2024-08-04 15:27] LABS: ALT 11 U/L (10-49); AST 14 U/L (14-35); Albumin 4.2 g/dL (3.8-4.9); Alkaline Phosphatase 114 U/L (41-126); Calcium 9.5 mg/dL (8.7-10.3); Carbon Dioxide 23.2 mmol/L (21.6-31.8); Globulin 2.1 g/dL (1.6-3.3); Total Bilirubin 0.9 mg/dL (0.3-1.2); Total Protein 6.3 g/dL (6.2-8.2)
== END | disposition home or self-care (01) ==
LOC: LABPAT 10:36
PROVIDERS: ATTEND Orthopaedic Surgery
DX: Z01.818 Encounter for other preprocedural examination (principal); I21.9 Acute myocardial infarction, unspecified; I44.0 Atrioventricular block, first degree; I44.4 Left anterior fascicular block; E11.9 Type 2 diabetes mellitus without complications; M17.11 Unilateral primary osteoarthritis, right knee; R00.1 Bradycardia, unspecified; R94.31 Abnormal electrocardiogram [ECG] [EKG]; Z22.322 Carrier or suspected carrier of Methicillin resistant Staphylococcus aureus
CPT/HCPCS: 80053; 83036; 85027; 85610; 85730; 87070; 93005

== ENCOUNTER → 2024-08-04 | Outpatient (CLI) | payer MEDICARE ==
--- NOTE | 2024-08-06 08:11 | CT ---
EXAMINATION TYPE: CT right knee - [facility] Protocol DATE OF EXAM: 08/04/2024 10:49 AM COMPARISON: None. 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 Images were obtained in the axial plane at 2 mm thick sections through the hip and ankle and 1 mm thick sections through the knee. Reconstructed i mages in the coronal and sagittal plane are reviewed. Contrast used: mL of , (none if empty) Oral contrast used: (none if empty) CT DLP: 1230 mGycm, Automated exposure control for dose reduction was used. FINDINGS: Hip: Right femoral head articulates with the acetabulum. There is joint space narrowing. No acute fra ctures are Knee: No acute fractures evident. There is patellofemoral joint space narrowing greater along the med ial aspect. There is loss of the medial compartment joint space. There is moderate lateral compartmen t joint space. Ankle: No acute osseous abnormality. IMPRESSION: 1. CT for [facility] knee presurgical planning. [facility], , 08/06/2024 8:09 AM
== END | disposition home or self-care (01) ==
LOC: RADCTMAIN 10:12
PROVIDERS: ATTEND Orthopaedic Surgery
DX: Z01.818 Encounter for other preprocedural examination (principal); M17.11 Unilateral primary osteoarthritis, right knee